=== PATIENT | female | born 1975 | race Caucasian/White ===

== ENCOUNTER 2018-09-03 15:07 | Inpatient (IN) | payer OTHER ==
[2018-09-03 17:44] VITALS: BMI 27.6
--- NOTE | 2018-09-03 17:59 | HP ---
COWS - Scale Resting Pulse: 1= [place] 81-100 Sweatin= Chills/Flushing Restless Observation: 1= Difficult to Sit Still Pupil Size: 1= Pupils >than Normal Bone or Joint Aches: 2= Severe Diffuse Aches Runny Nose/ Eye Tearin= Runny Nose/Eyes GI Upset > 30mins: 1= Stomach Cramp Tremor Observation: 2= Slight Tremor Visible Yawning Observation: 2= >3x During Session Anxiety or Irritability: 2=Irritable/Anxious Goose Flesh Skin: 0=Smooth Skin COWS Score: 15 CIWA Score Nausea/Vomitin Muscle Tremors: 2 Anxiety: 2 Agitation: 2 Paroxysmal Sweats: 1-Minimal Palms Moist Orientation: 0-Oriented Tacttile Disturbances: 1-Very Mild Itch/Numbness Auditory Disturbances: 1-Very Mild Visual Disturbances: 0-None Headache: 2-Mild CIWA-Ar Total Score: 13 - Admission Criteria [facility]AS Guidelines: Admission for Medically Managed Detox: Requires at least one of the followin. CIWA greater than 12 2. Seizures within the past 24 hours 3. Delirium tremens within the past 24 hours 4. Hallucinations within the past 24 hours 5. Acute intervention needed for co occurring medical disorder 6. Acute intervention needed for co occurring psychiatric disorder 7. Severe withdrawal that cannot be handled at a lower level of care (continued vomiting, continued diarrhea, abnormal vital signs) requiring intravenous medication and/or fluids 8. Patient presents the following: CIWA greater than 12 Admission Criteria Met: Admission criteria met Admission ROS [facility] Chief Complaint: i am here for detox from heroin ,alcohol and cocaine Allergies/Adverse Reactions: Allergies Allergy/AdvReac Type Severity Reaction Status Date / Time No Known Allergies Allergy Verified 09/03/18 17:49 History of Present Illness: this 42 years old female with heroin.alcohol and cocaine dependence,seeking detox,withdrawal symptom,never been in detox before nicotine dependence weight loss need help to come in for detox - Ebola screening Have you traveled outside of the country in the last 21 days: No (N) Have you had contact with anyone from an Ebola affected area: No Have you been sick,other than usual withdrawal symptoms: No Do you have a fever: No - Review of Systems Constitutional: Chills, Loss of Appetite, Malaise, Night Sweats, Changes in sleep, Weakness EENT: reports: No Symptoms Reported Respiratory: reports: No Symptoms reported Cardiac: reports: No Symptoms Reported GI: reports: Constipated, Nausea, Abdominal cramping : reports: No Symptoms Reported Musculoskeletal: reports: Joint Pain, Muscle Pain, Neck Pain Integumentary: reports: Dryness Neuro: reports: Headache, Tremors Endocrine: reports: No Symptoms Reported Hematology: reports: No Symptoms Reported Psychiatric: reports: Judgement Intact, Mood/Affect Appropiate, Orientated x3 Other Systems: Reviewed and Negative Patient History - Patient Medical History Hx Anemia: No Hx Asthma: No Hx Chronic Obstructive Pulmonary Disease (COPD): No Hx Cancer: No Hx Cardiac Disorders: No Hx Congestive Heart Failure: No Hx Hypertension: No Hx Hypercholesterolemia: No Hx Pacemaker: No HX Cerebrovascular Accident: No Hx Seizures: No Hx Dementia: No Hx Diabetes: No Hx Gastrointestinal Disorders: No Hx Liver Disease: No Hx Genitourinary Disorders: No Hx Sexually Transmitted Disorders: No Hx Renal Disease (ESRD): No Hx Thyroid Disease: No Hx Human Immunodeficiency Virus (HIV): No (last 2007) Hx Hepatitis C: No Hx Depression: No Hx Suicide Attempt: No Hx Bipolar Disorder: No Hx Schizophrenia: No Other Medical History: no suicidal,no homicidal - Patient Surgical History Past Surgical History: No - PPD History Previous Implant?: Yes Documented Results: Negative w/o proof Implanted On Prior R Admission?: No PPD to be Administered?: Yes - Reproductive History Patient is a Female of Child Bearing Age (11 -55 yrs old): Yes Last Menstrual Period: 09/02/18 Patient : No - Smoking Cessation Smoking history: Current every day smoker Have you smoked in the past 12 months: Yes Aproximately how many cigarettes per day: 20 Hx Chewing Tobacco Use: No Initiated information on smoking cessation: Yes 'Breaking Loose' booklet given: 09/03/18 - Substance & Tx. History Hx Alcohol Use: Yes Hx Substance Use: Yes Substance Use Type: Alcohol, Heroin Hx Substance Use Treatment: No - Substances Abused Alcohol Route: Oral Frequency: Daily Amount used: 4/6 PACKS BEER Age of first use: 29 Date of Last Use: 09/03/18 Heroin Route: SNIFF Frequency: Daily Amount used: 2 BUNDLES Age of first use: 42 Date of Last Use: 09/03/18 Family Disease History - Family Disease History Family History: Denies Admission Physical Exam BHS - Vital Signs Vital Signs: Vital Signs - 24 hr 09/03/18 17:22 Temperature 98.6 F Pulse Rate 84 Respiratory 18 Rate Blood Pressure 93/60 - Physical General Appearance: Yes: Moderate Distress, Tremorous, Irritable, Sweating, Anxious HEENTM: Yes: Normal ENT Inspection, AKASH, Pharynx Normal Respiratory: Yes: Within Normal Limits, Lungs Clear, Normal Breath Sounds Neck: Yes: Within Normal Limits, Supple, Trachea in good position Breast: Yes: Breast Exam Deferred Cardiology: Yes: Within Normal Limits, Regular Rhythm, Regular Rate, S1, S2 Abdominal: Yes: Within Normal Limits, Normal Bowel Sounds, Non Tender, Flat, Soft Genitourinary: Yes: Within Normal Limits Back: Yes: Muscle Spasm Musculoskeletal: Yes: Back pain, Muscle Pain 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 intact, Fully Oriented, Alert, Motor Strength 5/5 Integumentary: Yes: Dry, Petechiae - Diagnostic (1) Opioid dependence with withdrawal Current Visit: Yes Status: Acute (2) Alcohol dependence with uncomplicated withdrawal Current Visit: Yes Status: Acute (3) Cocaine abuse Current Visit: Yes Status: Acute (4) Weight loss Current Visit: Yes Status: Acute (5) Dehydration Current Visit: Yes Status: Acute (6) Nicotine dependence Current Visit: Yes Status: Acute Cleared for Admission [facility] - Detox or Rehab [facility] Level of Care: Medically Managed Detox Regimen/Protocol: Methadone/Librium [facility] Breath Alcohol Content Breath Alcohol Content: 0 Urine Pregancy Test - Result Urine Test Results: Negative- NO Line Present Urine Drug Screen - Results Drug Screen Negative: No Urine Drug Screen Results: RICKY-Cocaine, OPI-Opiates Inpatient Rehab Admission - Rehab Decision to Admit Inpatient rehab admission?: No
[2018-09-03] MEDS ORDERED: MAGNESIUM CITRATE 300 ML BOTTLE PO PRN (19:22)
[2018-09-03] MEDS ORDERED: MAGNESIUM HYDROX 2400MG/30ML ORAL SUSPENSION 30 ML CUP PO PRN (19:22)
[2018-09-03] MEDS ORDERED: MENTHOL/PHENOL 1 EACH UD MM PRN (19:22)
[2018-09-03] MEDS ORDERED: NICOTINE POLACRILEX 2 MG GUM BC PRN (19:22)
[2018-09-03] MEDS ORDERED: P-EPHED 60MG/TRIPROLIDI 2.5MG TABLET PO PRN (19:22)
[2018-09-03] MEDS ORDERED: LOPERAMIDE HCL 2 MG CAPSULE PO PRN (19:22)
[2018-09-03] MEDS ORDERED: MAG HYDROX/AL HYDROX/SIMETH 30 ML UNIT-DOSE CUP PO PRN (19:22)
[2018-09-03] MEDS ORDERED: hydrOXYzine PAMOATE 25 MG CAPSULE (FP) PO PRN (19:22)
[2018-09-03] MEDS ORDERED: METHADONE HCL 10 MG TABLET (FOR DETOX USE ONLY) PO ONE ×2 (19:45→23:00)
[2018-09-03] MEDS: NICOTINE 21 MG/24 HOURS TOPICAL PATCH TD SCH (21:31)
[2018-09-03] MEDS ORDERED: MELATONIN 5 MG TABLETS PO PRN (22:00)
[2018-09-03] MEDS: chlordiazePOXIDE HCL 25 MG CAPSULE PO SCH (22:08)
[2018-09-03] MEDS: cloNIDine HCL 0.1 MG TABLET PO SCH (22:08)
[2018-09-03] MEDS: THIAMINE HCL 100 MG TABLET (FP) PO SCH (22:08)
[2018-09-04] MEDS: chlordiazePOXIDE HCL 25 MG CAPSULE PO SCH ×4 (06:00→23:06)
[2018-09-04] MEDS: ACETAMINOPHEN 325 MG TABLET (FP) PO PRN ×4 (06:11→23:08)
[2018-09-04] MEDS: guaiFENesin/D-METHORPHAN HB 10 ML UNIT-DOSE CUPS PO PRN (06:12)
--- NOTE | 2018-09-04 07:38 | PN ---
S Progress Note Note: Patient had a fever of T 102.1 and complained of cough. She is status post a fall. Vital Signs Temperature 102.1 F H 09/04/18 06:30 Pulse Rate 100 H 09/04/18 06:30 Respiratory Rate 20 09/04/18 06:30 Blood Pressure 121/79 09/04/18 06:30 O2 Sat by Pulse Oximetry (%) Action: CBC and BMP done Guaifenesin DM 10 ml oral Q6H prn [id number] tablet Q4H as needed
[2018-09-04] MEDS ORDERED: METHADONE HCL 10 MG TABLET (FOR DETOX USE ONLY) PO SCH (10:00)
[2018-09-04] MEDS: PRENATAL VITAMINS W/ FOLIC ACID TABLET (FP) PO SCH (10:44)
[2018-09-04] MEDS: NICOTINE 21 MG/24 HOURS TOPICAL PATCH TD SCH (10:45)
[2018-09-04] MEDS: cloNIDine HCL 0.1 MG TABLET PO SCH ×2 (10:45→23:06)
[2018-09-04 10:49] LABS: HEMATOCRIT 32.9 % (32.4-45.2); HEMOGLOBIN 11.2 GM/dL (10.7-15.3); MCH 32.7 pg (25.7-33.7); MCHC 34.1 g/dl (32.0-36.0); MEAN CELL VOLUME 95.8 fl (80-96); MEAN PLT VOLUME 8.8 fl (7.5-11.1); PLATELET COUNT 254 K/MM3 (134-434); RBC 3.43 M/mm3 (3.60-5.2); RDW 16.4 % (11.6-15.6); WHITE BLOOD COUNT 5.3 K/mm3 (4.0-10.0)
[2018-09-04 10:55] LABS: ALBUMIN 3.1 g/dl (3.4-5.0); ALK PHOS 54 U/L (45-117); ANION GAP 6 MMOL/L (8-16); BILIRUBIN,TOTAL 0.2 mg/dL (0.2-1); BLOOD UREA NITROGEN 13 mg/dL (7-18); CALCIUM 8.1 mg/dL (8.5-10.1); CHLORIDE 107 mmol/L (98-107); CO2 26 mmol/L (21-32); GLUCOSE,RANDOM 99 mg/dL (74-106); POTASSIUM 4.4 mmol/L (3.5-5.1); SGOT/AST 12 U/L (15-37); SGPT/ALT 14 U/L (13-61); SODIUM 139 mmol/L (136-145); TOT PROT 6.3 g/dl (6.4-8.2)
--- NOTE | 2018-09-04 11:43 | PN ---
[facility] CIWA - CIWA Score Nausea/Vomitin-Mild Nausea/No Vomiting Muscle Tremors: 3 Anxiety: 1-Mildly Anxious Agitation: 2 Paroxysmal Sweats: 1-Minimal Palms Moist Orientation: 1-Uncertain about Date Tacttile Disturbances: 0-None Auditory Disturbances: 0-None Visual Disturbances: 0-None Headache: 1-Very Mild CIWA-Ar Total Score: 10 [facility] COWS - Scale Resting Pulse: 1= [place] 81-100 Sweatin= Chills/Flushing Restless Observation: 0= Sits Still Pupil Size: 0= Normal to Room Light Bone or Joint Aches: 2= Severe Diffuse Aches Runny Nose/ Eye Tearin= Nasal Congestion GI Upset > 30mins: 2= Nausea/Diarrhea Tremor Observation of Outstretched Hands: 2= Slight Tremor Visible Yawning Observation: 1= 1-2x During Session Anxiety or Irritability: 1=Feels Anxious/Irritable Goose Flesh Skin: 0=Smooth Skin COWS Score: 11 [facility] Progress Note (SOAP) Subjective: tremor body aches sweating muscle cramping coughing frequent urination Objective: 09/04/18 12:31 Vital Signs Temperature 100.5 F H 09/04/18 09:36 Pulse Rate 95 H 09/04/18 09:36 Respiratory Rate 16 09/04/18 09:36 Blood Pressure 98/62 09/04/18 09:36 O2 Sat by Pulse Oximetry (%) Laboratory Last Values WBC 5.3 K/mm3 (4.0-10.0) 09/04/18 07:35 RBC 3.43 M/mm3 (3.60-5.2) L 09/04/18 07:35 Hgb 11.2 GM/dL (10.7-15.3) 09/04/18 07:35 Hct 32.9 % (32.4-45.2) 09/04/18 07:35 MCV 95.8 fl (80-96) 09/04/18 07:35 MCH 32.7 pg (25.7-33.7) 09/04/18 07:35 MCHC 34.1 g/dl (32.0-36.0) 09/04/18 07:35 RDW 16.4 % (11.6-15.6) H 09/04/18 07:35 Plt Count 254 K/MM3 (134-434) 09/04/18 07:35 MPV 8.8 fl (7.5-11.1) 09/04/18 07:35 Sodium 139 mmol/L (136-145) 09/04/18 07:35 Potassium 4.4 mmol/L (3.5-5.1) 09/04/18 07:35 Chloride 107 mmol/L (98-107) 09/04/18 07:35 Carbon Dioxide 26 mmol/L (21-32) 09/04/18 07:35 Anion Gap 6 MMOL/L (8-16) L 09/04/18 07:35 BUN 13 mg/dL (7-18) 09/04/18 07:35 Creatinine 1.0 mg/dL (0.55-1.3) 09/04/18 07:35 Creat Clearance w eGFR > 60 (>60) 09/04/18 07:35 Random Glucose 99 mg/dL (74-106) 09/04/18 07:35 Calcium 8.1 mg/dL (8.5-10.1) L 09/04/18 07:35 Total Bilirubin 0.2 mg/dL (0.2-1) 09/04/18 07:35 AST 12 U/L (15-37) L 09/04/18 07:35 ALT 14 U/L (13-61) 09/04/18 07:35 Alkaline Phosphatase 54 U/L (45-117) 09/04/18 07:35 Total Protein 6.3 g/dl (6.4-8.2) L 09/04/18 07:35 Albumin 3.1 g/dl (3.4-5.0) L 09/04/18 07:35 RPR Titer Nonreactive (NONREACTIVE) 09/04/18 07:35 HIV 1&2 Antibody Screen Negative 09/04/18 07:35 HIV P24 Antigen Negative 09/04/18 07:35 lab noted low Ca++ 09/04/18 12:31 Assessment: 09/04/18 12:32 withdrawal sx rule out pneumonia uti Plan: continue detox chest x ray bactrim ds bid
[2018-09-04] MEDS: SULFAMETHOXAZOLE/TRIMETHOPRIM 800MG/160MG D.S. TABLET PO SCH ×2 (14:25→22:55)
[2018-09-04] MEDS: CALCIUM 250MG/VIT-D 125 UNITS 1 COMBO TABLET PO SCH ×2 (14:25→22:55)
[2018-09-04] MEDS: IBUPROFEN 400 MG TABLET (FP) PO PRN (17:20)
[2018-09-04] MEDS: CYCLOBENZAPRINE HCL 10 MG TABLET (FP) PO PRN (19:16)
[2018-09-04] MEDS: chlordiazePOXIDE HCL 25 MG CAPSULE PO PRN (19:18)
[2018-09-04] MEDS: THIAMINE HCL 100 MG TABLET (FP) PO SCH (22:06)
[2018-09-05] MEDS: IBUPROFEN 400 MG TABLET (FP) PO PRN ×2 (01:12→16:49)
[2018-09-05] MEDS: CYCLOBENZAPRINE HCL 10 MG TABLET (FP) PO PRN (03:58)
[2018-09-05] MEDS: ACETAMINOPHEN 325 MG TABLET (FP) PO PRN ×2 (03:58→15:17)
[2018-09-05] MEDS: chlordiazePOXIDE HCL 25 MG CAPSULE PO SCH ×3 (04:00→16:49)
[2018-09-05] MEDS: guaiFENesin/D-METHORPHAN HB 10 ML UNIT-DOSE CUPS PO PRN (04:01)
[2018-09-05] MEDS: chlordiazePOXIDE HCL 25 MG CAPSULE PO PRN ×2 (08:48→20:09)
[2018-09-05] MEDS ORDERED: METHADONE HCL 5 MG TABLET (FOR DETOX USE ONLY) PO SCH (10:00)
[2018-09-05] MEDS: PRENATAL VITAMINS W/ FOLIC ACID TABLET (FP) PO SCH (10:33)
[2018-09-05] MEDS: cloNIDine HCL 0.1 MG TABLET PO SCH ×2 (10:34→22:27)
[2018-09-05] MEDS: NICOTINE 21 MG/24 HOURS TOPICAL PATCH TD SCH (10:35)
[2018-09-05] MEDS: CALCIUM 250MG/VIT-D 125 UNITS 1 COMBO TABLET PO SCH ×2 (10:35→22:28)
[2018-09-05] MEDS: SULFAMETHOXAZOLE/TRIMETHOPRIM 800MG/160MG D.S. TABLET PO SCH ×2 (10:36→22:27)
--- NOTE | 2018-09-05 11:28 | PN ---
[facility] CIWA - CIWA Score Nausea/Vomitin-No Nausea/No Vomiting Muscle Tremors: 2 Anxiety: 3 Agitation: 2 Paroxysmal Sweats: 1-Minimal Palms Moist Orientation: 0-Oriented Tacttile Disturbances: 0-None Auditory Disturbances: 0-None Visual Disturbances: 0-None Headache: 0-None Present CIWA-Ar Total Score: 8 [facility] COWS - Scale Resting Pulse: 2= [place] 101-120 Sweatin= Chills/Flushing Restless Observation: 0= Sits Still Pupil Size: 0= Normal to Room Light Bone or Joint Aches: 1= Mild Discomfort Runny Nose/ Eye Tearin= Nasal Congestion GI Upset > 30mins: 0= None Tremor Observation of Outstretched Hands: 1= Tremor [place], Not Seen Yawning Observation: 1= 1-2x During Session Anxiety or Irritability: 1=Feels Anxious/Irritable Goose Flesh Skin: 0=Smooth Skin COWS Score: 8 [facility] Progress Note (SOAP) Subjective: sweating tolerates food and fluid well frequent low grade fever treated with tylenal and oral fluid continue bactrim ds Objective: 09/05/18 11:29 Vital Signs Temperature 96.6 F L 09/05/18 09:11 Pulse Rate 85 09/05/18 09:11 Respiratory Rate 16 09/05/18 09:11 Blood Pressure 95/59 L 09/05/18 09:11 O2 Sat by Pulse Oximetry (%) Laboratory Last Values WBC 5.3 K/mm3 (4.0-10.0) 09/04/18 07:35 RBC 3.43 M/mm3 (3.60-5.2) L 09/04/18 07:35 Hgb 11.2 GM/dL (10.7-15.3) 09/04/18 07:35 Hct 32.9 % (32.4-45.2) 09/04/18 07:35 MCV 95.8 fl (80-96) 09/04/18 07:35 MCH 32.7 pg (25.7-33.7) 09/04/18 07:35 MCHC 34.1 g/dl (32.0-36.0) 09/04/18 07:35 RDW 16.4 % (11.6-15.6) H 09/04/18 07:35 Plt Count 254 K/MM3 (134-434) 09/04/18 07:35 MPV 8.8 fl (7.5-11.1) 09/04/18 07:35 Sodium 139 mmol/L (136-145) 09/04/18 07:35 Potassium 4.4 mmol/L (3.5-5.1) 09/04/18 07:35 Chloride 107 mmol/L (98-107) 09/04/18 07:35 Carbon Dioxide 26 mmol/L (21-32) 09/04/18 07:35 Anion Gap 6 MMOL/L (8-16) L 09/04/18 07:35 BUN 13 mg/dL (7-18) 09/04/18 07:35 Creatinine 1.0 mg/dL (0.55-1.3) 09/04/18 07:35 Creat Clearance w eGFR > 60 (>60) 09/04/18 07:35 Random Glucose 99 mg/dL (74-106) 09/04/18 07:35 Calcium 8.1 mg/dL (8.5-10.1) L 09/04/18 07:35 Total Bilirubin 0.2 mg/dL (0.2-1) 09/04/18 07:35 AST 12 U/L (15-37) L 09/04/18 07:35 ALT 14 U/L (13-61) 09/04/18 07:35 Alkaline Phosphatase 54 U/L (45-117) 09/04/18 07:35 Total Protein 6.3 g/dl (6.4-8.2) L 09/04/18 07:35 Albumin 3.1 g/dl (3.4-5.0) L 09/04/18 07:35 RPR Titer Nonreactive (NONREACTIVE) 09/04/18 07:35 HIV 1&2 Antibody Screen Negative 09/04/18 07:35 HIV P24 Antigen Negative 09/04/18 07:35 lab noted Assessment: 09/05/18 11:30 opiate and benzo withdrawal sx Plan: continue detox
--- NOTE | 2018-09-05 13:59 | EKG ---
Test Reason : Blood Pressure : / mmHG Vent. Rate : 087 BPM Atrial Rate : 087 BPM P-R Int : 118 ms QRS Dur : 074 ms QT Int : 344 ms P-R-T Axes : 056 067 037 degrees QTc Int : 413 ms NORMAL SINUS RHYTHM NORMAL ECG NO PREVIOUS ECGS AVAILABLE Confirmed by JAYDA FLORES MD ([id number]) on 09/05/2018 1:59:16 PM Referred By: Confirmed By:JAYDA FLORES MD
[2018-09-05 18:47] VITALS: TEMP 101.3
--- NOTE | 2018-09-05 19:11 | PN ---
[facility] Progress Note Note: Patient evaluated after consistent elevated temperature. Patient was admitted 09/03/17 for alcohol and opioid detox. Patient complaints of generalize body aches, weakness, light sensitivity and diaphoresis, reports she has had a fever for three days. Patient denies CP, SOB, cough, any vaginal discharge or urinary symptoms. Patient AO x3 in no respiratory distress + diaphoresis EENT WNL Lungs Clear throughout s1 s2 , no jvd + back pain Skin intact, no edema Vital Signs (72 hours) 09/03/18 09/03/18 09/04/18 17:22 22:00 00:30 Temperature 98.6 F 99.9 F H Pulse Rate 84 89 Respiratory 18 16 18 Rate Blood Pressure 93/60 89/59 L 09/04/18 09/04/18 09/04/18 03:30 06:30 09:36 Temperature 102.1 F H 100.5 F H Pulse Rate 100 H 95 H Respiratory 18 20 16 Rate Blood Pressure 121/79 98/62 09/04/18 09/04/18 09/04/18 14:42 18:03 23:46 Temperature 100.1 F H 100.4 F H 101 F H Pulse Rate 82 94 H Respiratory 1 L 16 Rate Blood Pressure 95/57 L 114/78 09/05/18 09/05/18 09/05/18 00:30 01:00 06:00 Temperature 102.5 F H 100.9 F H Pulse Rate 107 H Respiratory 18 20 Rate Blood Pressure 102/67 09/05/18 09/05/18 09/05/18 06:30 09:11 12:45 Temperature 99.3 F 96.6 F L 101.3 F H Pulse Rate 85 121 H Respiratory 18 16 18 Rate Blood Pressure 95/59 L 115/73 09/05/18 09/05/18 17:31 18:46 Temperature 101.5 F H 101.3 F H Pulse Rate 94 H 101 H Respiratory 16 16 Rate Blood Pressure 73/48 L 100/62 Laboratory Last Values WBC 5.3 K/mm3 (4.0-10.0) 09/04/18 07:35 RBC 3.43 M/mm3 (3.60-5.2) L 09/04/18 07:35 Hgb 11.2 GM/dL (10.7-15.3) 09/04/18 07:35 Hct 32.9 % (32.4-45.2) 09/04/18 07:35 MCV 95.8 fl (80-96) 09/04/18 07:35 MCH 32.7 pg (25.7-33.7) 09/04/18 07:35 MCHC 34.1 g/dl (32.0-36.0) 09/04/18 07:35 RDW 16.4 % (11.6-15.6) H 09/04/18 07:35 Plt Count 254 K/MM3 (134-434) 09/04/18 07:35 MPV 8.8 fl (7.5-11.1) 09/04/18 07:35 Sodium 139 mmol/L (136-145) 09/04/18 07:35 Potassium 4.4 mmol/L (3.5-5.1) 09/04/18 07:35 Chloride 107 mmol/L (98-107) 09/04/18 07:35 Carbon Dioxide 26 mmol/L (21-32) 09/04/18 07:35 Anion Gap 6 MMOL/L (8-16) L 09/04/18 07:35 BUN 13 mg/dL (7-18) 09/04/18 07:35 Creatinine 1.0 mg/dL (0.55-1.3) 09/04/18 07:35 Creat Clearance w eGFR > 60 (>60) 09/04/18 07:35 Random Glucose 99 mg/dL (74-106) 09/04/18 07:35 Calcium 8.1 mg/dL (8.5-10.1) L 09/04/18 07:35 Total Bilirubin 0.2 mg/dL (0.2-1) 09/04/18 07:35 AST 12 U/L (15-37) L 09/04/18 07:35 ALT 14 U/L (13-61) 09/04/18 07:35 Alkaline Phosphatase 54 U/L (45-117) 09/04/18 07:35 Total Protein 6.3 g/dl (6.4-8.2) L 09/04/18 07:35 Albumin 3.1 g/dl (3.4-5.0) L 09/04/18 07:35 RPR Titer Nonreactive (NONREACTIVE) 09/04/18 07:35 HIV 1&2 Antibody Screen Negative 09/04/18 07:35 HIV P24 Antigen Negative 09/04/18 07:35 Patient sent to [facility] for further evaluation, endorsed to Dr. Hiren Randall, patient transported via [facility].
[2018-09-05 21:42] VITALS: BP 97/62; PULSE 106
--- NOTE | 2018-09-05 22:16 | PN ---
S Progress Note Note: Vital Signs Temperature 101.3 F H 09/05/18 20:00 Pulse Rate 106 H 09/05/18 20:00 Respiratory Rate 18 09/05/18 20:00 Blood Pressure 97/62 09/05/18 20:00 O2 Sat by Pulse Oximetry (%) Patient medically cleared dx with strep pharyngitis d/c with Rapid strep test positive -- providing 875 mg PO Augmentin. Influenza A positive -- will provide first dose of Tamiflu
[2018-09-05] MEDS: THIAMINE HCL 100 MG TABLET (FP) PO SCH (22:28)
--- NOTE | 2018-09-05 22:58 | PN ---
[facility] Progress Note Note: 09/05/18 22:10 pt has a POSITIVE STREP SWAB and a POSITIVE INFLUENZA swab and was started on antibiotics and tamiflu discharge back to [facility] 09/05/18 22:[address] MORALES ABOUT ABOVE. CLIENT WILL REQUIRES DROPLET ISOLATION. CASE D/W NURSING SUPV. JEWELL Greenwood CLIENT WILL REQUIRE PVT ROOM. ALL ROOMS ARE DUAL OCCUPANCY. REQUEST TO ADMIT CLIENT TO [facility]ULT [facility].
[2018-09-05] MEDS ORDERED: chlordiazePOXIDE 5 MG CAPSULE PO SCH (23:00)
[2018-09-06] MEDS ORDERED: chlordiazePOXIDE HCL 10 MG CAPSULE PO SCH (23:00)
[2018-09-07] MEDS ORDERED: METHADONE HCL 10 MG TABLET (FOR DETOX USE ONLY) PO SCH (10:00)
[2018-09-08] MEDS ORDERED: METHADONE HCL 5 MG TABLET (FOR DETOX USE ONLY) PO SCH (06:00)
== END 2018-09-05 11:59 | disposition short-term general hospital (02) | DRG 773 ==
LOC: YASAS 15:07 → Y3N 18:32
PROVIDERS: ADMIT Surgery; ATTEND Surgery
PROC: HZ2ZZZZ Detoxification Services for Substance Abuse Treatment (ICD-10-PCS; principal; 2018-09-03)
DX: F11.23 Opioid dependence with withdrawal (principal); F13.230 Sedative, hypnotic or anxiolytic dependence with withdrawal, uncomplicated; F14.10 Cocaine abuse, uncomplicated; F17.210 Nicotine dependence, cigarettes, uncomplicated; N39.0 Urinary tract infection, site not specified; J02.0 Streptococcal pharyngitis; J10.1 Influenza due to other identified influenza virus with other respiratory manifestations; E86.0 Dehydration
CPT/HCPCS: 36415; 71046-TC-FY; 80053; 85027; 86593; 87389; 93005; 93010

== ENCOUNTER 2018-09-05 20:30 | Inpatient (IN) | payer OTHER ==
[2018-09-05 20:51] VITALS: BMI 27.6
--- NOTE | 2018-09-05 21:00 | PDOC ---
History of Present Illness - General Chief Complaint: Respiratory Stated Complaint: FEVER/PAIN Time Seen by Provider: 09/05/18 20:47 History Source: Patient Exam Limitations: Other (poor historian, unwilling to answer some questions, uncooperative) - History of Present Illness Initial Comments: Pt is a 42 yo F, with PMH of polysubstance abuse (heroin, nicotine, alcohol, cocaine), who is presenting via EMS from [facility] detox with complaints of fever and generalized body aches x3 days. She had 1 episode of NBNB vomiting yesterday. Pt went to detox at [facility] 2 days ago, but denies ever using IVDU. Pt has been taking ibuprofen and motrin for fever, which has improved symptoms. Pt denies any headache, syncope, chest pain, SOB, abdominal pain, urinary symptoms, or diarrhea/constipation. Pt uncooperative and will only provide limited ROS. Social: see above Pt denies any recent travel or known sick contacts. Surgical: no relevant history. Family: no relevant history. 09/05/18 22:24 Past History - Travel Traveled outside of the country in the last 30 days: No Close contact w/someone who was outside of country & ill: No - Past Medical History Allergies/Adverse Reactions: Allergies Allergy/AdvReac Type Severity Reaction Status Date / Time No Known Allergies Allergy Verified 09/05/18 20:51 Home Medications: Ambulatory Orders Naloxone HCl [Narcan] 4 mg NS ASDIR PRN 09/04/18 Amoxicillin/Potassium Clav [Augmentin 875-125 Tablet] 1 each PO BID 7 Days #14 tablet 09/05/18 Oseltamivir Phosphate [Tamiflu] 75 mg PO BID 5 Days #10 capsule 09/05/18 Anemia: No Asthma: No Cancer: No Cardiac Disorders: No CVA: No COPD: No CHF: No Dementia: No Diabetes: No GI Disorders: No Disorders: No HTN: No Hypercholesterolemia: No Liver Disease: No Seizures: No Thyroid Disease: No - Suicide/Smoking/Psychosocial Hx Smoking History: Current some day smoker Have you smoked in the past 12 months: Yes Number of Cigarettes Smoked Daily: 20 Information on smoking cessation initiated: No 'Breaking Loose' booklet given: 09/03/18 Hx Alcohol Use: Yes Drug/Substance Use Hx: Yes (Heroin, Cocaine) Substance Use Type: Alcohol, Heroin Hx Substance Use Treatment: No Review of Systems - Review of Systems Able to Perform ROS?: No (uncooperative, see HPI) Is the patient limited Libyan proficient: No *Physical Exam - Vital Signs Last Vital Signs Temp Pulse Resp BP Pulse Ox 101.3 F H 103 H 20 100/62 98 09/05/18 20:30 09/05/18 20:30 09/05/18 20:30 09/05/18 20:30 09/05/18 20:30 - Physical Exam Comments: Febrile 101.3. Pt in NAD, normal body habitus. PE showed pt alert and oriented. ore dryer generally intact, muscular strength and sensation intact. Eyes PERRLA, EOMI. No LAD b/l. Hearing intact. Nasal congestion with boggy turbinates. Pt would not allow examination past the throat swab to examine if exudates were present. Clear heart sounds, S1/S2, no JVD, b/l pedal edema, or heart murmur. Clear lung sounds, no respiratory distress, wheezes, crackles, or accessory muscle use. No abdominal or CVA tenderness to palpation, no rebound, no guarding. Abdomen soft, non-distended, and with normoactive bowel sounds. Skin without jaundice or rash. No active needle track heart. 09/05/18 22:24 Moderate Sedation - Procedure Monitoring Vital Signs: Procedure Monitoring Vital Signs Temperature 101.3 F H 09/05/18 20:30 Pulse Rate 103 H 09/05/18 20:30 Respiratory Rate 20 09/05/18 20:30 Blood Pressure 100/62 09/05/18 20:30 O2 Sat by Pulse Oximetry (%) 98 09/05/18 20:30 Medical Decision Making - Medical Decision Making Pt was seen at bedside, also will be seen by attending Dr. Forbes. Pt presenting via EMS from [facility] detox with complaints of fever and generalized body aches x3 days. She had 1 episode of NBNB vomiting yesterday. Pt went to detox at [facility] 2 days ago, but denies ever using IVDU. Pt has been taking ibuprofen and motrin for fever, which has improved symptoms. Pt denies any headache, syncope, chest pain, SOB, abdominal pain, urinary symptoms , or diarrhea/constipation. Pt uncooperative and will only provide limited ROS. Febrile 101.3. Pt in NAD, normal body habitus. PE showed pt alert and oriented. ore dryer generally intact, muscular strength and sensation intact. Eyes PERRLA, EOMI. No LAD b/l. Hearing intact. Nasal congestion with boggy turbinates. Pt would not allow examination past the throat swab to examine if exudates were present. Clear heart sounds, S1/S2, no JVD, b/l pedal edema, or heart murmur. Clear lung sounds, no respiratory distress, wheezes, crackles, or accessory muscle use. No abdominal or CVA tenderness to palpation, no rebound, no guarding. Abdomen soft, non-distended, and with normoactive bowel sounds. Skin without jaundice or rash. No active needle track heart. Considering viral URI vs influenza vs strep pharyngitis. Pt has been tested negative for HIV and has never used IV drugs. Pt has no meningeal signs on exam. Ordered work-up including rapid influenza and rapid strep test. Lab tests and chest x-ray done at [facility] yesterday and were all WNL. Provided 650 mg PO tylenol for improvement of fever. Will continue to reassess pt and monitor for symptomatic improvement. 09/05/18 21:53 Rapid strep test positive -- providing 875 mg PO Augmentin. Influenza A positive -- will provide first dose of Tamiflu Sent Augmentin and Tamiflu to [facility] pharmacy. 09/05/18 21:57 Pt was found wandering the halls, trying to lie down in other patients beds. Pt asked to go back to her room, when she complained about myself and nursing staff and asked to "see the pts rights of the hospital". Dr. Forbes spoke with pt and will communicate with her before discharge. Calling [facility] to inform pt is ready for discharge and we will arrange transportation as pt is admitted. 09/05/18 21:59 *DC/Admit/Observation/Transfer Diagnosis at time of Disposition: Strep pharyngitis, Cocaine abuse, Alcohol dependence with uncomplicated withdrawal - Discharge Dispostion Disposition: [facility]WAY FACILITY Condition at time of disposition: Good Decision to Admit order: No - Prescriptions Prescriptions: Amoxicillin/Potassium Clav [Augmentin 875-125 Tablet] 1 each PO BID 7 Days #14 tablet Oseltamivir Phosphate [Tamiflu] 75 mg PO BID 5 Days #10 capsule - Referrals Referrals: [facility] [place]Provider Group] - Patient Instructions Printed Discharge Instructions: DI for Strep Throat, DI for Influenza -- Adult Additional Instructions: You were seen in the ER today for fever. The results of your labs today showed Flu A and strep throat. We have sent Tamiflu and an antibiotic (Augmentin) to your pharmacy. Please take these as prescribed. Please follow-up with your primary care doctor within 1-2 days to discuss your visit and make sure your symptoms have improved. Please return to the ER if you have any worsening pain, development of fevers or chills, loss of consciousness , inability to tolerate food or fluids, or any other concerns. - Post Discharge Activity
[2018-09-05] MEDS ORDERED: ACETAMINOPHEN 325 MG TABLET (FP) PO ONE (21:05)
--- NOTE | 2018-09-05 21:16 | PDOC ---
Attending Attestation - HPI HPI: 09/05/18 21:33 The patient is a 42 year old female, with a significant past medical history of polysubstance abuse (heroin, cocaine, and alcohol), who presents to the emergency department via EMS from [facility] with, fever (Tmax 101.4F), nasal congestion, and diffuse body aches. She denies recent nausea, vomit, diarrhea or constipation. She denies recent dysuria, frequency, urgency or hematuria. She denies recent chest pain or shortness of breath. Allergies: NKDA Social history: Smoker. Cocaine, alcohol, and heroin abuse. - Physicial Exam PE: 09/05/18 21:33 GENERAL: Well-appearing, well-nourished. No apparent distress. HEENT: +Nasal congestion. Normocephalic, atraumatic. PERRL, EOM intact. CARDIOVASCULAR: +Tachycardic. Normal S1, S2. Regular rhythm. PULMONARY: Clear to auscultation bilaterally. ABDOMEN: Soft, non-distended, non-tender. EXTREMITIES: Normal ROM in all four extremities. No gross deformities. SKIN: Warm, dry. No rash NEUROLOGICAL: No focal neurological deficits. <Magdalene Rice - Last Filed: 09/05/18 21:32> - Resident Resident Name: Alida Rodriguez - ED Attending Attestation I have performed the following: I have examined & evaluated the patient, The case was reviewed & discussed with the resident, I agree w/resident's findings & plan, Exceptions are as noted - Medical Decision Making 09/05/18 22:10 pt has a POSITIVE STREP SWAB and a POSITIVE INFLUENZA swab and was started on antibiotics and tamiflu discharge back to [facility] 09/05/18 22:25 09/05/18 23:03 [facility] does not accept patient's with droplet precautions/isolation because they do not have isolation rooms and so this pt will need to be admitted here and a detox consult will be made w [facility]'s detpx physician 09/05/18 23:35 <Sherrie Forbes - Last Filed: 09/05/18 23:35> Attestations - Attestations 09/05/18 21:34 Documentation prepared by Magdalene Rice, acting as hospital medical assistant for Sherrie Forbes MD. <Magdalene Rice - Last Filed: 09/05/18 21:32>
[2018-09-05] MEDS ORDERED: AMOX TR/POT CLAV 875MG/125MG TABLETS (FP) PO ONE (21:50)
[2018-09-05] MEDS ORDERED: OSELTAMIVIR PHOSPHATE 75 MG CAPSULE PO ONE (21:58)
[2018-09-05] MEDS ORDERED: OSELTAMIVIR PHOSPHATE 75 MG CAPSULE ONE (22:21)
[2018-09-05] MEDS ORDERED: ACETAMINOPHEN 325 MG TABLET (FP) ONE (22:21)
[2018-09-05] MEDS ORDERED: AMOX TR/POT CLAV 875MG/125MG TABLETS (FP) ONE (22:23)
--- NOTE | 2018-09-05 23:50 | PN ---
Teaching Attending Note Name of Resident: Jackie Zamudio ATTENDING PHYSICIAN STATEMENT I saw and evaluated the patient. I reviewed the resident's note and discussed the case with the resident. I agree with the resident's findings and plan as documented. SUBJECTIVE: Patient is a 42 year old woman with PMH of polysubstance abuse (heroin, nicotine , alcohol, cocaine), Tobacco use who is presenting via EMS from [facility] with complaints of fever and generalized body aches for three days. She had one episode of NBNB vomiting yesterday. She went to detox at [facility] two days ago , but denies ever using IVDU. Pateint has been taking ibuprofen and motrin for fever, which have improved her symptoms. Has cough with greenish sputum. She denies sorethroat, headache, syncope, chest pain, SOB, abdominal pain, urinary symptoms, or diarrhea/constipation. Patient is uncooperative and will only provide limited ROS. She denies any recent travel or known sick contacts. Her LMP was 3 days ago and she does not remember whether she took the Flu vaccine. OBJECTIVE: Alert Vital Signs Period Temp Pulse Resp BP Sys/Cobian Pulse Ox Last 24 Hr 101.3 F 103 20 100/62 98 HEENT: No Jaundice, eye redness or discharge, PERRLA, EOMI. Normocephalic, atraumatic. External ears are normal and hearing is grossly intact. No nasal discharge. Neck: Supple, nontender. No palpable adenopathy or thyromegaly. No JVD Chest: Good effort. Clear to auscultation and percussion. Heart: Regular. No S3, rub or murmur Abdomen: Not distended, soft, nontender and no HSM. No rebound or guarding. Normal bowel sounds. Ext: Peripheral pulses intact. No leg edema. Skin: Warm and dry. No petechiae, rash or ecchymosis. Neuro: Alert. Oriented x3. Sluggish. CN 2-12 grossly intact. No tremors or asterexis. Sensation grossly intact in all four extremities and DTR are symmetric. Psych: Appropriate mood and affect. Good insight. Home Medications Medication Instructions Recorded Naloxone HCl [Narcan] 4 mg NS ASDIR PRN 09/04/18 Amoxicillin/Potassium Clav 1 each PO BID 7 Days #14 tablet 09/05/18 [Augmentin 875-125 Tablet] Oseltamivir Phosphate [Tamiflu] 75 mg PO BID 5 Days #10 capsule 09/05/18 Abnormal Lab Results 09/05/18 21:19 Influenza A (Rapid) Positive A ASSESSMENT AND PLAN: 1. Sepsis due to Influenza A - No acute abnormality on CXR. No pharyngeal injection or exudates. No significant ST-T wave changes on EKG. Will get urine legionella antigen. Being treated with Tamiflu. Add azithromycin and rocepin - possible atypical pneumonia?. Continue IV hydration. Consult ID. 2. Polysubstance and Alcohol abuse - Implement Healthcare IT alcohol withdrawal protocol. Monitor her closely on telemetry for withdrawal symptoms. Implement neurochecks, seizure, fall and aspiration precautions. Treat with thiamine and folic acid and monitor electrolytes (Ca,Mg,K,P). 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 Consult medical charge entry specialist. Refer to alcohol/drug detox upon discharge. 3. DVT prophylaxis - Lovenox 40 mg SQ q 24 hours. 4. Advance directives - Full code
--- NOTE | 2018-09-06 00:21 | HP ---
CHIEF COMPLAINT: fever, generalized body aches/weakness, x3 days PCP: HISTORY OF PRESENT ILLNESS: 42F w/ pmhx of polysubstance abuse (heroin, cocaine, tobacco, alcohol) was sent to the ED from [facility] after being found febrile with generalized body aches. Pt states she came to [facility] for alcoholic/heroine rehab last Wednesday, but started feeling sick around that time. She endorses fever, generalized body aches, malaise, and feeling sluggish. She also admits to a cough with productive green sputum and dypsnea on exertion. She denies taking anything for her symptoms since they started. Admits to some constipation, but denies garcia/d, n /v, abd pain, diarrhea, blood in urine/stool. She also denies hx of lung or heart disease, and denies recent sick contacts. In the ED she was found to be wandering in the halls trying to lie down in other patient's beds. Per ED, pt was going to be discharged back to [facility], however because she was +flu and needed droplet/isolation precautions, [facility] was unable to accept her at this time as they do not do isolation beds at the facility. ER course was notable for: (1) Temp 101.3, HR 103, BP 100/62, +Influenza A, +Group A strep (2) Augmentin 875 and Tamiflu given (3) CXR was neg for acute pathology Recent Travel: Denies PAST MEDICAL HISTORY: Polysubstance abuse anemia PAST SURGICAL HISTORY: Denies Social History: Smoking: Denies Alcohol: Drinks about 1 6pack of beer a week, last drink was 1 week ago Drugs: Started snorting heroin 05/2018, has been using 2 bags per session ever since Family History: Denies Allergies No Known Allergies Allergy (Verified 09/05/18 20:51) HOME MEDICATIONS: Home Medications Medication Instructions Recorded Naloxone HCl [Narcan] 4 mg NS ASDIR PRN 09/04/18 Amoxicillin/Potassium Clav 1 each PO BID 7 Days #14 tablet 09/05/18 [Augmentin 875-125 Tablet] Oseltamivir Phosphate [Tamiflu] 75 mg PO BID 5 Days #10 capsule 09/05/18 REVIEW OF SYSTEMS CONSTITUTIONAL: +fever, diaphoresis, generalized weakness, malaise Absent: chills, loss of appetite, weight change HEENT: Absent: rhinorrhea, nasal congestion, throat pain, throat swelling, difficulty swallowing, mouth swelling, ear pain, eye pain, visual changes CARDIOVASCULAR: Absent: chest pain, syncope, palpitations, irregular heart rate, lightheadedness , peripheral edema RESPIRATORY: +cough with productive green sputum, shortness of breath, dyspnea with exertion Absent: orthopnea, wheezing, stridor, hemoptysis GASTROINTESTINAL: +constipation Absent: abdominal pain, abdominal distension, nausea, vomiting, diarrhea, melena , hematochezia GENITOURINARY: Absent: dysuria, frequency, urgency, hesitancy, hematuria MUSCULOSKELETAL: +myalgia Absent:arthralgia, joint swelling, back pain, neck pain NEUROLOGIC: Absent: headache, focal weakness or paresthesias, dizziness, unsteady gait, seizure, mental status changes PHYSICAL EXAMINATION Vital Signs - 24 hr 09/05/18 20:30 Temperature 101.3 F H Pulse Rate 103 H Respiratory 20 Rate Blood Pressure 100/62 O2 Sat by Pulse 98 Oximetry (%) GENERAL: Awake and alert, although with sluggish speech. Slow to respond to questions. HEENT: AT/NC. EOMI. AKASH. Moist mucus membranes, no exudates or erythema seen. NECK: Normal range of motion, supple without lymphadenopathy, JVD, or masses. LUNGS: Poor inspiratory effort, although no wheezes/crackles/rales noted. HEART: RRR. Normal S1, S2. No murmurs noted. ABDOMEN: Soft, NT/ND. Normoactive BS. No rebound tenderness/guarding. No masses noted. MUSCULOSKELETAL: Normal range of motion at all joints. No bony deformities or tenderness. No CVA tenderness. UPPER EXTREMITIES: 2+ pulses, warm, well-perfused. No cyanosis. No clubbing. No peripheral edema. LOWER EXTREMITIES: 2+ pulses, warm, well-perfused. No calf tenderness. No peripheral edema. NEUROLOGICAL: Facial muscles intact, normal speech. No tongue deviation. 5/5 muscle strength u/l b/l extremities PSYCHIATRIC: Cooperative. Good eye contact. Appropriate mood and affect. SKIN: Warm, dry, normal turgor, no rashes or lesions noted, normal capillary refill. Laboratory Results - last 24 hr 09/05/18 09/05/18 21:19 21:20 Influenza A (Rapid) Positive A Influenza B (Rapid) Negative Group A Strep Rapid Positive IMAGING: * CXR: Neg for acute pathology. ASSESSMENT/PLAN: 42F w/ pmhx of polysubstance abuse (heroin, cocaine, tobacco, alcohol) was sent to the ED from [facility] after being found febrile with generalized body aches. #Viral Syndrome 2/2 Influenza A; ? concomitant atypical pneumonia -Tamiflu 75 x5 days to treat influenza -Will also give Ceftriaxone 1gm IV and Azithromycin 500 mg IV x1 dose to treat for possible atypical pneumonia; Will defer continuation of IV antibiotics to day team if needed. Consider ID consult. -Urine Legionella Ag ordered -IVf #Polysubstance Abuse -Cont Librium protocol per [facility] records. Pt currently on Librium 15 Q6H. Check records when to cont with tapered dosages. -Cont Methadone per [facility] records. Currently on Methadone 10 mg Q6H -Drug cessation counseling -Detox consult #Prophylaxis -Lovenox 40 SQ #FEN -NS @ 83 x2bags -recheck BMP in AM -Regular diet dispo -admit to inpt med-surg Visit type - Emergency Visit Emergency Visit: Yes ED Registration Date: 09/05/18 Care time: The patient presented to the Emergency Department on the above date and was hospitalized for further evaluation of their emergent condition. - New Patient This patient is new to me today: Yes Date on this admission: 09/06/18 - Critical Care Critical Care patient: No
[2018-09-06] MEDS ORDERED: CEFTRIAXONE 1 GM in DEXTROSE 5%-WATER - 100 ML IVPB ONE (00:23)
[2018-09-06] MEDS ORDERED: AZITHROMYCIN IVPB 500 MG in DEXTROSE 5%-WATER - 250 ML IVPB ONE (00:24)
[2018-09-06] MEDS ORDERED: chlordiazePOXIDE HCL 25 MG CAPSULE PO PRN (00:50)
[2018-09-06] MEDS ORDERED: CEFTRIAXONE 1 GM/50 ML BAG ONE (00:55)
[2018-09-06] MEDS ORDERED: AZITHROMYCIN IVPB 500 MG/250 ML BAG IVPB ONE (01:57)
[2018-09-06] MEDS: chlordiazePOXIDE 5 MG CAPSULE PO SCH ×3 (03:20→17:39)
[2018-09-06] MEDS: METHADONE HCL 10 MG TABLET PO SCH (03:20)
[2018-09-06] MEDS: SODIUM CHLORIDE 1,000 ML IV SCH (03:41)
[2018-09-06] MEDS ORDERED: chlordiazePOXIDE HCL 25 MG CAPSULE PO SCH (05:00)
[2018-09-06 06:32] LABS: ALBUMIN 3.1 g/dl (3.4-5.0); ALK PHOS 50 U/L (45-117); ANION GAP 8 MMOL/L (8-16); BILIRUBIN,TOTAL 0.1 mg/dL (0.2-1); BLOOD UREA NITROGEN 11 mg/dL (7-18); CALCIUM 8.1 mg/dL (8.5-10.1); CHLORIDE 109 mmol/L (98-107); CO2 22 mmol/L (21-32); CREATININE 0.8 mg/dL (0.55-1.3); GLUCOSE,RANDOM 79 mg/dL (74-106); POTASSIUM 4.4 mmol/L (3.5-5.1); SGOT/AST 12 U/L (15-37); SGPT/ALT 13 U/L (13-61); SODIUM 139 mmol/L (136-145); TOT PROT 6.3 g/dl (6.4-8.2)
[2018-09-06 06:56] LABS: BASO % 0.3 % (0-2.0); EOS % 1.6 % (0-4.5); HEMATOCRIT 29.4 % (32.4-45.2); HEMOGLOBIN 10.2 GM/dL (10.7-15.3); LYMPH % 47.6 % (8-40); MCH 32.5 pg (25.7-33.7); MCHC 34.5 g/dl (32.0-36.0); MEAN CELL VOLUME 94.3 fl (80-96); MEAN PLT VOLUME 8.5 fl (7.5-11.1); MONO % 10.6 % (3.8-10.2); NEUT % 39.9 % (42.8-82.8); PLATELET COUNT 225 K/MM3 (134-434); RBC 3.12 M/mm3 (3.60-5.2); RDW 15.9 % (11.6-15.6); WHITE BLOOD COUNT 4.3 K/mm3 (4.0-10.0)
[2018-09-06] MEDS ORDERED: AMOX TR/POT CLAV 875MG/125MG TABLETS (FP) PO SCH (08:00)
[2018-09-06] MEDS ORDERED: OSELTAMIVIR PHOSPHATE 75 MG CAPSULE PO SCH (10:00)
[2018-09-06] MEDS: ENOXAPARIN NA (PORCINE) 40 MG/0.4 ML DISP.SYRIN SQ SCH (11:26)
[2018-09-06] MEDS: cloNIDine HCL 0.1 MG TABLET PO SCH ×2 (11:27→21:35)
[2018-09-06] MEDS: NICOTINE 21 MG/24 HOURS TOPICAL PATCH TD SCH (11:27)
--- NOTE | 2018-09-06 13:47 | EKG ---
Test Reason : Blood Pressure : / mmHG Vent. Rate : 094 BPM Atrial Rate : 094 BPM P-R Int : 110 ms QRS Dur : 072 ms QT Int : 320 ms P-R-T Axes : 051 071 028 degrees QTc Int : 400 ms SINUS RHYTHM WITH SHORT WY OTHERWISE NORMAL ECG WHEN COMPARED WITH ECG OF 04-SEP-2018 13:26, NO SIGNIFICANT CHANGE WAS FOUND Confirmed by MD Stone Daniel ([id number]) on 09/06/2018 1:47:36 PM Referred By: Confirmed By:Jonel Stone MD
--- NOTE | 2018-09-06 15:12 | PN ---
Progress Note (short form) - Note Progress Note: SUBJECTIVE: Asking for her meds. Admits to cough and fever. No hemoptysis/chest pain. No tremor or hallucinations. OBJECTIVE: Afebrile, Hemodynamically Stable. Fidgety, mildly agitated, walking around the ED, unable to sit still. Last Vital Signs Temp Pulse Resp BP Pulse Ox 98.5 F 70 16 105/57 L 100 09/06/18 12:00 09/06/18 12:00 09/06/18 12:00 09/06/18 12:00 09/06/18 09:00 HEENT - Atraumatic, Normocephalic. Heart - S1, S2, RRR Lungs - clear to auscultation, no crackles/wheeze. Abdomen - Soft, non-tender. Bowel Sounds normal. Extremities - no edema/no calf tenderness Neuro - AAO x 3. Tone/Power normal all 4 extremities. Laboratory Results - last 24 hr 09/05/18 09/05/18 09/06/18 21:19 21:20 05:30 WBC 4.3 RBC 3.12 L Hgb 10.2 L Hct 29.4 L MCV 94.3 MCH 32.5 MCHC 34.5 RDW 15.9 H Plt Count 225 MPV 8.5 Absolute Neuts (auto) 1.7 Neutrophils % 39.9 L Lymphocytes % 47.6 H Monocytes % 10.6 H Eosinophils % 1.6 Basophils % 0.3 Nucleated RBC % 0 Sodium Potassium Chloride Carbon Dioxide Anion Gap BUN Creatinine Creat Clearance w eGFR Random Glucose Calcium Total Bilirubin AST ALT Alkaline Phosphatase Total Protein Albumin Beta HCG, Quant Influenza A (Rapid) Positive A Influenza B (Rapid) Negative Group A Strep Rapid Positive 09/06/18 09/06/18 05:30 06:30 WBC RBC Hgb Hct MCV MCH MCHC RDW Plt Count MPV Absolute Neuts (auto) Neutrophils % Lymphocytes % Monocytes % Eosinophils % Basophils % Nucleated RBC % Sodium 139 Potassium 4.4 Chloride 109 H Carbon Dioxide 22 Anion Gap 8 BUN 11 Creatinine 0.8 Creat Clearance w eGFR > 60 Random Glucose 79 Calcium 8.1 L Total Bilirubin 0.1 L AST 12 L ALT 13 Alkaline Phosphatase 50 Total Protein 6.3 L Albumin 3.1 L Beta HCG, Quant < 1.0 Cancelled Influenza A (Rapid) Influenza B (Rapid) Group A Strep Rapid Current Medications Generic Name Dose Route Start Last Admin Trade Name Freq PRN Reason Stop Dose Admin Chlordiazepoxide HCl 15 mg 09/06/18 03:15 09/06/18 03:20 Librium - PO 15 mg Q6H MIHAELA Administration Clonidine 0.1 mg 09/06/18 10:00 09/06/18 11:27 Catapres - PO Not Given BID MIHAELA Cyclobenzaprine HCl 10 mg 09/06/18 03:00 Flexeril - PO Q8H PRN MUSCLE SPASMS Enoxaparin Sodium 40 mg 09/06/18 10:00 09/06/18 11:26 Lovenox - SQ 40 mg DAILY MIHAELA Administration Sodium Chloride 1,000 mls @ 83 mls/hr 09/06/18 03:30 09/06/18 03:41 Normal Saline - IV 09/07/18 15:33 83 mls/hr ASDIR MIHAELA Administration Melatonin 5 mg 09/06/18 03:00 Melatonin PO HS PRN INSOMNIA Methadone HCl 10 mg 09/06/18 03:15 09/06/18 03:20 Dolophine - PO 10 mg Q6H MIHAELA Administration Nicotine 21 mg 09/06/18 10:00 09/06/18 11:27 Nicoderm Patch - TD 21 mg DAILY MIHAELA Administration Oseltamivir Phosphate 75 mg 09/06/18 10:00 09/06/18 11:27 Tamiflu - PO 09/15/18 10:01 75 mg DAILY MIHAELA Administration Thiamine HCl 100 mg 09/06/18 22:00 Vitamin B1 - PO HS [facility] ASSESSMENT/PLAN: 42 year old female with history of Polysubstance Abuse (Heroin, Cocaine, Alcohol , Tobacco) sent to ED from [facility] with fever and myalgia. She reports cough productive of greenish sputum - no hemoptysis. Found to be influenza A positive. 1. Sepsis secondary to Influenza A CXR 09/05/18 - negative Started on Tamiflu and on Abx empirically for Pneumonia Will discontinue Abx and repeat CXR PA/Lat Currently Hemodynamically Stable. Continue Tamiflu for 5 days. 2. Polysubstance Abuse (Hearoin, Cocaine, Alcohol, Tobacco) Resmed on Detox medications at [facility] including Methadone, Librium , Clonidine Addiction Medicine consult placed. MVI, Thiamine, Folic Acid. Nicotine patch DVT Px - Lovenox SQ Visit type - Emergency Visit Emergency Visit: Yes ED Registration Date: 09/05/18 Care time: The patient presented to the Emergency Department on the above date and was hospitalized for further evaluation of their emergent condition. - New Patient This patient is new to me today: Yes Date on this admission: 09/06/18 - Critical Care Critical Care patient: No - Discharge Referral Referred to [facility] No
[2018-09-06] MEDS ORDERED: METHADONE HCL 10 MG TABLET PO ONE (16:30)
[2018-09-06] MEDS: AMOX TR/POT CLAV 875MG/125MG TABLETS (FP) PO SCH (16:49)
--- NOTE | 2018-09-06 17:11 | PN ---
[facility] Progress Note (SOAP) Subjective: pt referred for consultation , transferred from [facility] for cold symptoms , found to have influenza and Strep , started Librium and Methadone protocol , and wishes to continue detox while in isolation / droplet precautions. Active Medications Amoxicillin/Clavulanate Potassium (Augmentin - 875mg Tablet) 1 tab PO BID@0800, 1730 [facility] Last Admin: 09/06/18 16:49 Dose: 1 tab Chlordiazepoxide HCl (Librium -) 15 mg PO Q6HPO [facility] Stop: 09/07/18 12:01 Last Admin: 09/06/18 16:49 Dose: 15 mg Clonidine (Catapres -) 0.1 mg PO BID [facility] Last Admin: 09/06/18 11:27 Dose: Not Given Cyclobenzaprine HCl (Flexeril -) 10 mg PO Q8H PRN PRN Reason: MUSCLE SPASMS Enoxaparin Sodium (Lovenox -) 40 mg SQ DAILY [facility] Last Admin: 09/06/18 11:26 Dose: 40 mg Sodium Chloride (Normal Saline -) 1,000 mls @ 83 mls/hr IV ASDIR [facility] Stop: 09/07/18 15:33 Last Admin: 09/06/18 03:41 Dose: 83 mls/hr Melatonin (Melatonin) 5 mg PO HS PRN PRN Reason: INSOMNIA Nicotine (Nicoderm Patch -) 21 mg TD DAILY [facility] Last Admin: 09/06/18 11:27 Dose: 21 mg Oseltamivir Phosphate (Tamiflu -) 75 mg PO BID [facility] Stop: 09/11/18 21:59 Thiamine HCl (Vitamin B1 -) 100 mg PO HS [facility] Objective: 09/06/18 17:10 CBC, BMP 09/06/18 05:30 09/06/18 05:30 Vital Signs - 24 hr 09/05/18 09/06/18 09/06/18 20:30 01:00 06:14 Temperature 101.3 F H 99.8 F H Pulse Rate 103 H Pulse Rate [ 91 H Apical] Respiratory 20 18 Rate Blood Pressure 100/62 Blood Pressure 110/58 L [Left Arm] O2 Sat by Pulse 98 98 Oximetry (%) 09/06/18 09/06/18 09/06/18 09:00 10:00 12:00 Temperature 98.1 F 98.5 F Pulse Rate 84 70 Pulse Rate [ Apical] Respiratory 12 16 Rate Blood Pressure 94/67 105/57 L Blood Pressure [Left Arm] O2 Sat by Pulse 100 Oximetry (%) wnwd , concerned about making phone call to family , otherwise reports generalized bodyaches and loss of appetite , denies tremors , diarrhea . Assessment: opioid dependence alcohol dependence nicotine dependence. Plan: continue taper from [facility] .
[2018-09-06] MEDS ORDERED: hydrOXYzine PAMOATE 25 MG CAPSULE (FP) PO PRN (17:26)
[2018-09-06] MEDS ORDERED: NICOTINE POLACRILEX 2 MG GUM BUC PRN (17:26)
[2018-09-06] MEDS ORDERED: PT OWN MED DRAWER 7, Y5N ONE (21:00)
[2018-09-06] MEDS: ACETAMINOPHEN 325 MG TABLET (FP) PO PRN (21:36)
[2018-09-06] MEDS: OSELTAMIVIR PHOSPHATE 75 MG CAPSULE PO SCH (21:37)
[2018-09-06] MEDS: THIAMINE HCL 100 MG TABLET (FP) PO SCH (21:37)
[2018-09-06] MEDS: MELATONIN 5 MG TABLETS PO PRN (21:38)
[2018-09-07] MEDS: chlordiazePOXIDE 5 MG CAPSULE PO SCH ×3 (00:24→12:56)
[2018-09-07] MEDS: SODIUM CHLORIDE 1,000 ML IV SCH (04:30)
[2018-09-07] MEDS ORDERED: chlordiazePOXIDE HCL 25 MG CAPSULE PO SCH (05:00)
[2018-09-07] MEDS ORDERED: PT OWN MED DRAWER 7, Y5N ONE ×3 (06:20→22:33)
[2018-09-07] MEDS: AMOX TR/POT CLAV 875MG/125MG TABLETS (FP) PO SCH ×2 (08:55→18:11)
[2018-09-07] MEDS: OSELTAMIVIR PHOSPHATE 75 MG CAPSULE PO SCH ×2 (09:15→22:42)
[2018-09-07] MEDS: ENOXAPARIN NA (PORCINE) 40 MG/0.4 ML DISP.SYRIN SQ SCH (09:16)
[2018-09-07] MEDS: NICOTINE 21 MG/24 HOURS TOPICAL PATCH TD SCH (09:17)
[2018-09-07] MEDS: cloNIDine HCL 0.1 MG TABLET PO SCH ×2 (09:19→22:43)
[2018-09-07] MEDS ORDERED: METHADONE HCL 10 MG TABLET PO ONE (10:00)
[2018-09-07] MEDS ORDERED: METHADONE HCL 5 MG TABLET PO SCH (10:00)
--- NOTE | 2018-09-07 16:23 | PN ---
Progress Note, Physician Chief Complaint: Ms Mccoy says she is feeling upset today, but feeling better. Requests to keep her IV line in so she can get fluids to gain weight. Says she still has a productive cough. Denies cp and n/v. Says she has lost a lot of weight and needs ensure with her meals. Says she does not want to eat the food because she does not like it. - Current Medication List Current Medications: Active Medications Acetaminophen (Tylenol -) 650 mg PO Q6H PRN PRN Reason: PAIN OR FEVER Last Admin: 09/06/18 21:36 Dose: 650 mg Amoxicillin/Clavulanate Potassium (Augmentin - 875mg Tablet) 1 tab PO BID@0800, 1730 [facility] Last Admin: 09/07/18 08:55 Dose: 1 tab Chlordiazepoxide HCl (Librium -) 5 mg PO S8F-SAB [facility] Stop: 09/09/18 11:01 Chlordiazepoxide HCl (Librium -) 25 mg PO Q4H PRN PRN Reason: WITHDRAWAL(CONT SUBST) Stop: 09/09/18 17:22 Chlordiazepoxide HCl (Librium -) 10 mg PO V2D-MEP [facility] Stop: 09/08/18 11:01 Clonidine (Catapres -) 0.1 mg PO BID [facility] Last Admin: 09/07/18 09:19 Dose: 0.1 mg Cyclobenzaprine HCl (Flexeril -) 10 mg PO Q8H PRN PRN Reason: MUSCLE SPASMS Enoxaparin Sodium (Lovenox -) 40 mg SQ DAILY [facility] Last Admin: 09/07/18 09:16 Dose: Not Given Hydroxyzine Pamoate (Vistaril -) 25 mg PO Q4H PRN PRN Reason: AGITATION Melatonin (Melatonin) 5 mg PO HS PRN PRN Reason: INSOMNIA Last Admin: 09/06/18 21:38 Dose: 5 mg Methadone HCl (Dolophine -) 5 mg PO DAILY [facility] Stop: 09/09/18 09:59 Nicotine (Nicoderm Patch -) 21 mg TD DAILY [facility] Last Admin: 09/07/18 09:17 Dose: 21 mg Nicotine Polacrilex (Nicorette Gum -) 2 mg BUC Q2H PRN PRN Reason: NICOTINE REPLACEMENT RX Oseltamivir Phosphate (Tamiflu -) 75 mg PO BID [facility] Stop: 09/11/18 21:59 Last Admin: 09/07/18 09:15 Dose: 75 mg Thiamine HCl (Vitamin B1 -) 100 mg PO [facility] Last Admin: 09/06/18 21:37 Dose: 100 mg - Objective Vital Signs: Vital Signs Temperature 37.3 C 09/07/18 06:00 Pulse Rate 105 H 09/07/18 10:00 Respiratory Rate 18 09/07/18 10:00 Blood Pressure 102/41 L 09/07/18 10:00 O2 Sat by Pulse Oximetry (%) 100 09/07/18 10:00 Constitutional: Yes: Well Nourished, No Distress, Calm Cardiovascular: Yes: Regular Rate and Rhythm. No: Gallop, Murmur, Rub Respiratory: Yes: Regular, Cough. No: CTA Bilaterally, Rales, Rhonchi, Wheezes Gastrointestinal: Yes: Normal Bowel Sounds, Soft. No: Distention, Tenderness Extremities: Yes: WNL Edema: No Labs: CBC, BMP 09/06/18 05:30 09/06/18 05:30 Problem List - Problems (1) Influenza A Assessment/Plan: -patient feels improved -continue tamiflu 75mg bid, dose 2/10 -continue droplet precautions currently -can discontinue droplet precautions 24 hours after resolution of fever or symptoms, whichever is longer -last fever yesterday at 7pm, still with cough Code(s): J10.1 - FLU DUE TO OTH IDENT INFLUENZA VIRUS W OTH RESP MANIFEST (2) Alcohol dependence with uncomplicated withdrawal Assessment/Plan: -appreciate addiction medicine assistance -continue librium taper Code(s): F10.230 - ALCOHOL DEPENDENCE WITH WITHDRAWAL, UNCOMPLICATED (3) Strep pharyngitis Assessment/Plan: -continue augmentin Code(s): J02.0 - STREPTOCOCCAL PHARYNGITIS (4) Opioid dependence with withdrawal Assessment/Plan: -continue methadone Code(s): F11.23 - OPIOID DEPENDENCE WITH WITHDRAWAL Assessment/Plan Dispo -transfer back to [facility] when no longer needs isolation
[2018-09-07] MEDS ORDERED: chlordiazePOXIDE 5 MG CAPSULE ONE ×2 (17:31→22:32)
[2018-09-07] MEDS: chlordiazePOXIDE HCL 10 MG CAPSULE PO SCH ×2 (17:55→22:44)
[2018-09-07] MEDS: ACETAMINOPHEN 325 MG TABLET (FP) PO PRN (18:39)
[2018-09-07] MEDS: THIAMINE HCL 100 MG TABLET (FP) PO SCH (22:43)
[2018-09-08] MEDS: ACETAMINOPHEN 325 MG TABLET (FP) PO PRN ×2 (02:04→22:17)
[2018-09-08] MEDS: chlordiazePOXIDE HCL 25 MG CAPSULE PO PRN ×2 (02:04→15:28)
[2018-09-08] MEDS ORDERED: chlordiazePOXIDE 5 MG CAPSULE PO SCH (05:00)
[2018-09-08] MEDS: chlordiazePOXIDE 5 MG CAPSULE PO SCH ×5 (06:00→22:21)
[2018-09-08 08:02] LABS: BASO % 0.4 % (0-2.0); HEMATOCRIT 27.5 % (32.4-45.2); HEMOGLOBIN 9.2 GM/dL (10.7-15.3); MCH 31.6 pg (25.7-33.7); MCHC 33.6 g/dl (32.0-36.0); MEAN PLT VOLUME 8.7 fl (7.5-11.1); NEUT % 22.6 % (42.8-82.8); PLATELET COUNT 234 K/MM3 (134-434); RBC 2.92 M/mm3 (3.60-5.2); RDW 15.8 % (11.6-15.6); WHITE BLOOD COUNT 3.1 K/mm3 (4.0-10.0)
[2018-09-08 08:14] LABS: ANION GAP 4 MMOL/L (8-16); BLOOD UREA NITROGEN 20 mg/dL (7-18); CALCIUM 8.3 mg/dL (8.5-10.1); CHLORIDE 109 mmol/L (98-107); CO2 28 mmol/L (21-32); CREATININE 0.7 mg/dL (0.55-1.3); GLUCOSE,RANDOM 75 mg/dL (74-106); MAGNESIUM 2.4 mg/dL (1.8-2.4); PHOSPHOROUS 5.4 mg/dL (2.5-4.9); POTASSIUM 4.5 mmol/L (3.5-5.1); SODIUM 141 mmol/L (136-145)
[2018-09-08] MEDS: OSELTAMIVIR PHOSPHATE 75 MG CAPSULE PO SCH ×2 (10:30→21:48)
[2018-09-08] MEDS: NICOTINE 21 MG/24 HOURS TOPICAL PATCH TD SCH (10:30)
[2018-09-08] MEDS ORDERED: PT OWN MED DRAWER 7, Y5N ONE ×2 (10:35→22:02)
[2018-09-08] MEDS: METHADONE HCL 5 MG TABLET PO SCH ×2 (10:42→10:45)
[2018-09-08] MEDS: AMOX TR/POT CLAV 875MG/125MG TABLETS (FP) PO SCH ×2 (10:42→17:39)
[2018-09-08] MEDS: cloNIDine HCL 0.1 MG TABLET PO SCH ×2 (10:45→22:18)
[2018-09-08] MEDS: ENOXAPARIN NA (PORCINE) 40 MG/0.4 ML DISP.SYRIN SQ SCH (10:46)
--- NOTE | 2018-09-08 10:46 | PN ---
Progress Note, Physician Chief Complaint: Ms Mccoy complains of nausea and vomiting. Complaining that once the IVF were stopped "everything went wrong". Denies cp or sob. Still coughing but less. - Current Medication List Current Medications: Active Medications Acetaminophen (Tylenol -) 650 mg PO Q6H PRN PRN Reason: PAIN OR FEVER Last Admin: 09/08/18 02:04 Dose: 650 mg Amoxicillin/Clavulanate Potassium (Augmentin - 875mg Tablet) 1 tab PO BID@0800, 1730 [facility] Last Admin: 09/07/18 18:11 Dose: 1 tab Chlordiazepoxide HCl (Librium -) 5 mg PO [id number] [facility] Stop: 09/09/18 11:01 Chlordiazepoxide HCl (Librium -) 25 mg PO Q4H PRN PRN Reason: WITHDRAWAL(CONT SUBST) Stop: 09/09/18 17:22 Last Admin: 09/08/18 02:04 Dose: 25 mg Chlordiazepoxide HCl (Librium -) 10 mg PO [id number] [facility] Stop: 09/08/18 11:01 Last Admin: 09/08/18 06:00 Dose: 10 mg Clonidine (Catapres -) 0.1 mg PO BID [facility] Last Admin: 09/07/18 22:43 Dose: 0.1 mg Cyclobenzaprine HCl (Flexeril -) 10 mg PO Q8H PRN PRN Reason: MUSCLE SPASMS Enoxaparin Sodium (Lovenox -) 40 mg SQ DAILY [facility] Last Admin: 09/07/18 09:16 Dose: Not Given Hydroxyzine Pamoate (Vistaril -) 25 mg PO Q4H PRN PRN Reason: AGITATION Melatonin (Melatonin) 5 mg PO HS PRN PRN Reason: INSOMNIA Last Admin: 09/06/18 21:38 Dose: 5 mg Methadone HCl (Dolophine -) 5 mg PO DAILY [facility] Stop: 09/09/18 09:59 Nicotine (Nicoderm Patch -) 21 mg TD DAILY [facility] Last Admin: 09/07/18 09:17 Dose: 21 mg Nicotine Polacrilex (Nicorette Gum -) 2 mg BUC Q2H PRN PRN Reason: NICOTINE REPLACEMENT RX Oseltamivir Phosphate (Tamiflu -) 75 mg PO BID [facility] Stop: 09/11/18 21:59 Last Admin: 09/07/18 22:42 Dose: 75 mg Promethazine HCl (Phenergan Liquid -) 25 mg PO ONCE ONE Stop: 09/08/18 10:43 Promethazine HCl (Phenergan Liquid -) 25 mg PO Q6H PRN PRN Reason: NAUSEA AND/OR VOMITING Thiamine HCl (Vitamin B1 -) 100 mg PO HS [facility] Last Admin: 09/07/18 22:43 Dose: 100 mg - Objective Vital Signs: Vital Signs Temperature 36.8 C 09/08/18 05:39 Pulse Rate 74 09/08/18 05:39 Respiratory Rate 18 09/08/18 05:39 Blood Pressure 104/53 L 09/08/18 05:39 O2 Sat by Pulse Oximetry (%) 100 09/07/18 20:15 Constitutional: Yes: Well Nourished, No Distress, Calm Cardiovascular: Yes: Regular Rate and Rhythm. No: Gallop, Murmur, Rub Respiratory: Yes: Regular, CTA Bilaterally. No: Rales, Rhonchi, Wheezes Gastrointestinal: Yes: Normal Bowel Sounds, Soft. No: Distention, Tenderness Extremities: Yes: WNL Edema: No Labs: CBC, BMP 09/08/18 06:00 09/08/18 06:00 Problem List - Problems (1) Influenza A Code(s): J10.1 - FLU DUE TO OTH IDENT INFLUENZA VIRUS W OTH RESP MANIFEST (2) Alcohol dependence with uncomplicated withdrawal Code(s): F10.230 - ALCOHOL DEPENDENCE WITH WITHDRAWAL, UNCOMPLICATED (3) Strep pharyngitis Code(s): J02.0 - STREPTOCOCCAL PHARYNGITIS (4) Opioid dependence with withdrawal Code(s): F11.23 - OPIOID DEPENDENCE WITH WITHDRAWAL Assessment/Plan (1) Influenza A Assessment/Plan: -patient feels improved -continue tamiflu 75mg bid, dose 4/10 -continue droplet precautions currently -can discontinue droplet precautions 24 hours after resolution of fever or symptoms, whichever is longer -last fever yesterday at 6pm, cough improving Code(s): J10.1 - FLU DUE TO OTH IDENT INFLUENZA VIRUS W OTH RESP MANIFEST (2) Alcohol dependence with uncomplicated withdrawal Assessment/Plan: -appreciate addiction medicine assistance -continue librium taper Code(s): F10.230 - ALCOHOL DEPENDENCE WITH WITHDRAWAL, UNCOMPLICATED (3) Strep pharyngitis Assessment/Plan: -continue augmentin Code(s): J02.0 - STREPTOCOCCAL PHARYNGITIS (4) Opioid dependence with withdrawal Assessment/Plan: -continue methadone Code(s): F11.23 - OPIOID DEPENDENCE WITH WITHDRAWAL (5) Nausea w/ vomiting -suspect most likely secondary to tamiflu -will add prn phenergan -monitor
[2018-09-08] MEDS ORDERED: PROMETHAZINE HCL ORAL SYRUP 6.25 MG/5 ML (BULK BOTTLE) PO PRN (11:04)
[2018-09-08] MEDS ORDERED: PROMETHAZINE HCL ORAL SYRUP 6.25 MG/5 ML (BULK BOTTLE) PO ONE (11:15)
[2018-09-08 13:27] LABS: ANISOCYTOSIS 0; MACROCYTOSIS 1+; PLATELET ESTIMATE NORMAL
[2018-09-08] MEDS: THIAMINE HCL 100 MG TABLET (FP) PO SCH (21:48)
[2018-09-08] MEDS: MELATONIN 5 MG TABLETS PO PRN (21:48)
[2018-09-09] MEDS ORDERED: chlordiazePOXIDE HCL 10 MG CAPSULE PO SCH (05:00)
[2018-09-09] MEDS: chlordiazePOXIDE 5 MG CAPSULE PO SCH ×3 (05:22→10:35)
[2018-09-09] MEDS ORDERED: PT OWN MED DRAWER 7, Y5N ONE ×2 (06:16→21:13)
[2018-09-09 06:52] LABS: BASO % 0.6 % (0-2.0); EOS % 4.8 % (0-4.5); HEMATOCRIT 29.1 % (32.4-45.2); HEMOGLOBIN 9.9 GM/dL (10.7-15.3); LYMPH % 69.9 % (8-40); MCH 32.2 pg (25.7-33.7); MEAN CELL VOLUME 94.6 fl (80-96); MEAN PLT VOLUME 8.5 fl (7.5-11.1); MONO % 6.8 % (3.8-10.2); NEUT % 17.9 % (42.8-82.8); PLATELET COUNT 263 K/MM3 (134-434); RBC 3.07 M/mm3 (3.60-5.2); RDW 15.6 % (11.6-15.6); WHITE BLOOD COUNT 3.3 K/mm3 (4.0-10.0)
[2018-09-09 08:09] LABS: ANION GAP 4 MMOL/L (8-16); BLOOD UREA NITROGEN 18 mg/dL (7-18); CALCIUM 8.5 mg/dL (8.5-10.1); CHLORIDE 111 mmol/L (98-107); CO2 26 mmol/L (21-32); CREATININE 0.8 mg/dL (0.55-1.3); GLUCOSE,RANDOM 77 mg/dL (74-106); MAGNESIUM 2.6 mg/dL (1.8-2.4); PHOSPHOROUS 4.7 mg/dL (2.5-4.9); POTASSIUM 4.3 mmol/L (3.5-5.1); SODIUM 141 mmol/L (136-145)
[2018-09-09] MEDS: METHADONE HCL 10 MG TABLET PO SCH (08:34)
[2018-09-09] MEDS: AMOX TR/POT CLAV 875MG/125MG TABLETS (FP) PO SCH ×2 (10:34→16:48)
[2018-09-09] MEDS: OSELTAMIVIR PHOSPHATE 75 MG CAPSULE PO SCH ×2 (10:35→21:15)
[2018-09-09] MEDS: NICOTINE 21 MG/24 HOURS TOPICAL PATCH TD SCH (10:35)
[2018-09-09] MEDS: ENOXAPARIN NA (PORCINE) 40 MG/0.4 ML DISP.SYRIN SQ SCH (10:35)
[2018-09-09] MEDS: ACETAMINOPHEN 325 MG TABLET (FP) PO PRN (10:36)
[2018-09-09] MEDS: cloNIDine HCL 0.1 MG TABLET PO SCH ×2 (10:45→21:15)
[2018-09-09 11:48] LABS: ALBUMIN 3.2 g/dl (3.4-5.0); ALK PHOS 52 U/L (45-117); BILIRUBIN,DIRECT 0.1 mg/dL (0.0-0.2); BILIRUBIN,TOTAL 0.1 mg/dL (0.2-1); CHOLESTEROL 142 mg/dL (50-200); HDL CHOLESTEROL 50 mg/dL (40-60); SGOT/AST 16 U/L (15-37); SGPT/ALT 23 U/L (13-61); TOT PROT 6.4 g/dl (6.4-8.2); TRIGLYCERIDES 95 mg/dL (0-150)
[2018-09-09] MEDS: chlordiazePOXIDE HCL 25 MG CAPSULE PO PRN ×2 (12:15→16:48)
[2018-09-09 12:38] LABS: ANISOCYTOSIS 2+; MACROCYTOSIS 0; OVALOCYTE 1+; PLATELET ESTIMATE NORMAL
--- NOTE | 2018-09-09 14:35 | PN ---
Progress Note, Physician Chief Complaint: Ms Mccoy is still having nausea and vomiting but now also saying she is having abdominal pain, flank pain, and diarrhea. Denies cp and sob. Asking for her methadone. - Current Medication List Current Medications: Active Medications Acetaminophen (Tylenol -) 650 mg PO Q6H PRN PRN Reason: PAIN OR FEVER Last Admin: 09/09/18 10:36 Dose: 650 mg Amoxicillin/Clavulanate Potassium (Augmentin - 875mg Tablet) 1 tab PO BID@0800, 1730 [facility] Last Admin: 09/09/18 10:34 Dose: 1 tab Chlordiazepoxide HCl (Librium -) 25 mg PO Q4H PRN PRN Reason: WITHDRAWAL(CONT SUBST) Stop: 09/09/18 17:22 Last Admin: 09/09/18 12:15 Dose: 25 mg Clonidine (Catapres -) 0.1 mg PO BID [facility] Last Admin: 09/09/18 10:45 Dose: 0.1 mg Cyclobenzaprine HCl (Flexeril -) 10 mg PO Q8H PRN PRN Reason: MUSCLE SPASMS Enoxaparin Sodium (Lovenox -) 40 mg SQ DAILY [facility] Last Admin: 09/09/18 10:35 Dose: 40 mg Melatonin (Melatonin) 5 mg PO HS PRN PRN Reason: INSOMNIA Last Admin: 09/08/18 21:48 Dose: 5 mg Nicotine (Nicoderm Patch -) 21 mg TD DAILY [facility] Last Admin: 09/09/18 10:35 Dose: 21 mg Nicotine Polacrilex (Nicorette Gum -) 2 mg BUC Q2H PRN PRN Reason: NICOTINE REPLACEMENT RX Oseltamivir Phosphate (Tamiflu -) 75 mg PO BID [facility] Stop: 09/11/18 21:59 Last Admin: 09/09/18 10:35 Dose: 75 mg Promethazine HCl (Phenergan Liquid -) 25 mg PO Q6H PRN PRN Reason: NAUSEA AND/OR VOMITING Last Admin: 09/09/18 10:36 Dose: 25 mg Thiamine HCl (Vitamin B1 -) 100 mg PO HS [facility] Last Admin: 09/08/18 21:48 Dose: 100 mg - Objective Vital Signs: Vital Signs Temperature 38.8 C H 09/09/18 10:15 Pulse Rate 94 H 09/09/18 10:15 Respiratory Rate 18 09/09/18 10:15 Blood Pressure 118/65 09/09/18 10:15 O2 Sat by Pulse Oximetry (%) 100 09/08/18 21:00 Constitutional: Yes: Well Nourished, No Distress, Calm Cardiovascular: Yes: Regular Rate and Rhythm. No: Gallop, Murmur, Rub Respiratory: Yes: Regular, CTA Bilaterally. No: Rales, Rhonchi, Wheezes Gastrointestinal: Yes: Normal Bowel Sounds, Soft. No: Distention, Tenderness Extremities: Yes: WNL Edema: No Labs: CBC, BMP 09/09/18 05:40 09/09/18 05:40 Problem List - Problems (1) Influenza A Code(s): J10.1 - FLU DUE TO OTH IDENT INFLUENZA VIRUS W OTH RESP MANIFEST (2) Alcohol dependence with uncomplicated withdrawal Code(s): F10.230 - ALCOHOL DEPENDENCE WITH WITHDRAWAL, UNCOMPLICATED (3) Strep pharyngitis Code(s): J02.0 - STREPTOCOCCAL PHARYNGITIS (4) Opioid dependence with withdrawal Code(s): F11.23 - OPIOID DEPENDENCE WITH WITHDRAWAL Assessment/Plan (1) Influenza A Assessment/Plan: -continue tamiflu dose 12/12 Code(s): J10.1 - FLU DUE TO OTH IDENT INFLUENZA VIRUS W OTH RESP MANIFEST (2) Alcohol dependence with uncomplicated withdrawal Assessment/Plan: -appreciate addiction medicine assistance -continue librium taper Code(s): F10.230 - ALCOHOL DEPENDENCE WITH WITHDRAWAL, UNCOMPLICATED (3) Strep pharyngitis Assessment/Plan: -continue augmentin day 3 Code(s): J02.0 - STREPTOCOCCAL PHARYNGITIS (4) Opioid dependence with withdrawal Assessment/Plan: -addiction medicine to continue methadone if needed Code(s): F11.23 - OPIOID DEPENDENCE WITH WITHDRAWAL (5) Nausea w/ vomiting -continues to have fever -also saying having flank pain and diarrhea -will check c diff -check LFTs and lipase -CT scan to check for pyelonephritis -urinalysis, urine cultures, BC for fevers -chest x-ray negative
[2018-09-09 14:41] LABS: LIPASE 147 U/L (73-393)
[2018-09-09 16:02] LABS: URINE APPEARANCE SLCLOUDY; URINE BILIRUBIN NEGATIVE (<2.0 mg/dL); URINE COLOR YELLOW; URINE GLUCOSE (UA) NEGATIVE (NEGATIVE); URINE KETONE NEGATIVE (NEGATIVE); URINE LEUK ESTERASE NEGATIVE (NEGATIVE); URINE NITRITE NEGATIVE (NEGATIVE); URINE PROTEIN 1+ (NEGATIVE); URINE UROBILINOGEN NEGATIVE mg/dL (0.2-1.0)
[2018-09-09 16:18] LABS: EPI CELLS RARE /HPF (FEW)
[2018-09-09] MEDS: MELATONIN 5 MG TABLETS PO PRN (21:15)
[2018-09-09] MEDS: CYCLOBENZAPRINE HCL 10 MG TABLET (FP) PO PRN (21:15)
[2018-09-09] MEDS: THIAMINE HCL 100 MG TABLET (FP) PO SCH (21:15)
[2018-09-10 06:49] LABS: BASO % 0.5 % (0-2.0); EOS % 3.7 % (0-4.5); HEMATOCRIT 30.3 % (32.4-45.2); HEMOGLOBIN 10.1 GM/dL (10.7-15.3); MCH 31.3 pg (25.7-33.7); MCHC 33.4 g/dl (32.0-36.0); MEAN CELL VOLUME 93.7 fl (80-96); MEAN PLT VOLUME 8.1 fl (7.5-11.1); MONO % 7.6 % (3.8-10.2); NEUT % 26.2 % (42.8-82.8); PLATELET COUNT 283 K/MM3 (134-434); RBC 3.23 M/mm3 (3.60-5.2); RDW 15.4 % (11.6-15.6); WHITE BLOOD COUNT 3.9 K/mm3 (4.0-10.0)
[2018-09-10 06:58] LABS: ANION GAP 6 MMOL/L (8-16); BLOOD UREA NITROGEN 19 mg/dL (7-18); CALCIUM 8.9 mg/dL (8.5-10.1); CHLORIDE 110 mmol/L (98-107); CO2 24 mmol/L (21-32); CREATININE 0.8 mg/dL (0.55-1.3); GLUCOSE,RANDOM 83 mg/dL (74-106); MAGNESIUM 2.3 mg/dL (1.8-2.4); PHOSPHOROUS 5.1 mg/dL (2.5-4.9); POTASSIUM 4.3 mmol/L (3.5-5.1); SODIUM 140 mmol/L (136-145)
[2018-09-10] MEDS: CYCLOBENZAPRINE HCL 10 MG TABLET (FP) PO PRN (07:44)
[2018-09-10] MEDS: AMOX TR/POT CLAV 875MG/125MG TABLETS (FP) PO SCH (07:44)
[2018-09-10] MEDS: NICOTINE 21 MG/24 HOURS TOPICAL PATCH TD SCH (09:03)
[2018-09-10] MEDS: cloNIDine HCL 0.1 MG TABLET PO SCH (09:03)
[2018-09-10] MEDS: OSELTAMIVIR PHOSPHATE 75 MG CAPSULE PO SCH ×2 (09:03→21:56)
[2018-09-10] MEDS: ENOXAPARIN NA (PORCINE) 40 MG/0.4 ML DISP.SYRIN SQ SCH (09:03)
[2018-09-10] MEDS: ACETAMINOPHEN 325 MG TABLET (FP) PO PRN (09:15)
[2018-09-10] MEDS: IBUPROFEN 400 MG TABLET (FP) PO PRN ×2 (11:19→21:56)
--- NOTE | 2018-09-10 11:20 | PN ---
Progress Note, Physician Chief Complaint: Ms Mccoy complains of joint pain. Also says still having diarrhea and nausea/ vomiting. However mainly spends time asking to have her librium and her methadone restarted. - Current Medication List Current Medications: Active Medications Acetaminophen (Tylenol -) 650 mg PO Q6H PRN PRN Reason: PAIN OR FEVER Last Admin: 09/10/18 09:15 Dose: 650 mg Amoxicillin/Clavulanate Potassium (Augmentin - 875mg Tablet) 1 tab PO BID@0800, 1730 [facility] Last Admin: 09/10/18 07:44 Dose: 1 tab Clonidine (Catapres -) 0.1 mg PO BID [facility] Last Admin: 09/10/18 09:03 Dose: 0.1 mg Cyclobenzaprine HCl (Flexeril -) 10 mg PO Q8H PRN PRN Reason: MUSCLE SPASMS Last Admin: 09/10/18 07:44 Dose: 10 mg Enoxaparin Sodium (Lovenox -) 40 mg SQ DAILY [facility] Last Admin: 09/10/18 09:03 Dose: 40 mg Ibuprofen (Motrin -) 400 mg PO Q6H PRN PRN Reason: FEVER Melatonin (Melatonin) 5 mg PO HS PRN PRN Reason: INSOMNIA Last Admin: 09/09/18 21:15 Dose: 5 mg Nicotine (Nicoderm Patch -) 21 mg TD DAILY [facility] Last Admin: 09/10/18 09:03 Dose: 21 mg Nicotine Polacrilex (Nicorette Gum -) 2 mg BUC Q2H PRN PRN Reason: NICOTINE REPLACEMENT RX Oseltamivir Phosphate (Tamiflu -) 75 mg PO BID [facility] Stop: 09/11/18 21:59 Last Admin: 09/10/18 09:03 Dose: 75 mg Promethazine HCl (Phenergan Liquid -) 25 mg PO Q6H PRN PRN Reason: NAUSEA AND/OR VOMITING Last Admin: 09/09/18 10:36 Dose: 25 mg Thiamine HCl (Vitamin B1 -) 100 mg PO HS [facility] Last Admin: 09/09/18 21:15 Dose: 100 mg - Objective Vital Signs: Vital Signs Temperature 39.4 C H 09/10/18 09:14 Pulse Rate 102 H 09/10/18 09:14 Respiratory Rate 18 09/10/18 09:14 Blood Pressure 113/59 L 09/10/18 09:14 O2 Sat by Pulse Oximetry (%) 99 09/10/18 09:00 Constitutional: Yes: Well Nourished, No Distress Cardiovascular: Yes: Regular Rate and Rhythm. No: Gallop, Murmur, Rub Respiratory: Yes: Regular, CTA Bilaterally. No: Rales, Wheezes Gastrointestinal: Yes: Normal Bowel Sounds, Soft. No: Distention, Tenderness Extremities: Yes: WNL Edema: No Labs: CBC, BMP 09/10/18 06:00 09/10/18 06:00 Problem List - Problems (1) Influenza A Code(s): J10.1 - FLU DUE TO OTH IDENT INFLUENZA VIRUS W OTH RESP MANIFEST (2) Alcohol dependence with uncomplicated withdrawal Code(s): F10.230 - ALCOHOL DEPENDENCE WITH WITHDRAWAL, UNCOMPLICATED (3) Strep pharyngitis Code(s): J02.0 - STREPTOCOCCAL PHARYNGITIS (4) Opioid dependence with withdrawal Code(s): F11.23 - OPIOID DEPENDENCE WITH WITHDRAWAL Assessment/Plan (1) Influenza A Assessment/Plan: -continue tamiflu dose 02/11 Code(s): J10.1 - FLU DUE TO OTH IDENT INFLUENZA VIRUS W OTH RESP MANIFEST (2) Alcohol dependence with uncomplicated withdrawal Assessment/Plan: -librium taper completed Code(s): F10.230 - ALCOHOL DEPENDENCE WITH WITHDRAWAL, UNCOMPLICATED (3) Strep pharyngitis Assessment/Plan: -continue augmentin day 4 Code(s): J02.0 - STREPTOCOCCAL PHARYNGITIS (4) Opioid dependence with withdrawal Assessment/Plan: -addiction medicine to continue methadone if needed Code(s): F11.23 - OPIOID DEPENDENCE WITH WITHDRAWAL (5) Nausea w/ vomiting -still with fevers -blood and urine cultures sent, pending results -CT A/P finished, awaiting read -will consult ID -may need IV antibiotics -also consider ECHO if blood cultures are positive or develops murmur on exam
[2018-09-10 11:56] LABS: ANISOCYTOSIS 2+; MACROCYTOSIS 0; PLATELET ESTIMATE NORMAL; TEAR DROP CELLS 1+
[2018-09-10] MEDS ORDERED: METHOCARBAMOL 750 MG TABLET PO PRN (13:30)
[2018-09-10] MEDS ORDERED: chlordiazePOXIDE HCL 10 MG CAPSULE PO PRN (13:31)
[2018-09-10] MEDS ORDERED: ACETAMINOPHEN 325 MG TABLET (FP) PO PRN (14:12)
[2018-09-10] MEDS ORDERED: IBUPROFEN 400 MG TABLET (FP) PO ONE (14:15)
[2018-09-10] MEDS: chlordiazePOXIDE 5 MG CAPSULE PO PRN ×2 (14:23→22:02)
--- NOTE | 2018-09-10 15:17 | CON.ID ---
Consult Consult Specialty:: infectious diseases Referred by:: Reason for Consultation:: ever,weakness,strep - History of Present Illness Chief Complaint: weakness,fever History of Present Illness: 42F w/ pmhx of polysubstance abuse (heroin, cocaine, tobacco, alcohol) was sent to the ED from [facility] after being found febrile with generalized body aches. Pt states she came to [facility] for alcoholic/heroine rehab last Wednesday, but started feeling sick around that time. She endorses fever, generalized body aches, malaise, and feeling sluggish. She also admits to a cough with productive green sputum and dypsnea on exertion. She denies taking anything for her symptoms since they started. Admits to some constipation, but denies garcia/d, n /v, abd pain, diarrhea, blood in urine/stool. She also denies hx of lung or heart disease, and denies recent sick contacts. In the ED she was found to be wandering in the halls trying to lie down in other patient's beds. Per ED, pt was going to be discharged back to [facility], however because she was +flu and needed droplet/isolation precautions, [facility] was unable to accept her at this time as they do not do isolation beds at the facility. patient continued to spike fever and was also found to have strp patient was started on oral abx and inspite of that patient continues to spike fever and also feel very weak. patient does not have any other symptoms also her wbc is slightly on the lower side - History Source History Provided By: Patient Limitations to Obtaining History: No Limitations - Past Medical History ...LMP: 09/02/18 - Alcohol/Substance Use Hx Alcohol Use: Yes - Smoking History Smoking history: Current some day smoker Have you smoked in the past 12 months: Yes Aproximately how many cigarettes per day: 20 Home Medications - Allergies Allergies/Adverse Reactions: Allergies Allergy/AdvReac Type Severity Reaction Status Date / Time No Known Allergies Allergy Verified 09/05/18 20:51 - Home Medications Home Medications: Ambulatory Orders Acetaminophen [Tylenol] 650 mg PO Q4H PRN 09/06/18 Calcium 250Mg/Vit-D 125 Units [Oscal 250 mg+D -] 1 combo PO BID 09/06/18 Chlordiazepoxide [Librium -] 10 mg PO Q6H 09/06/18 Chlordiazepoxide [Librium -] 15 mg PO Q6H 09/06/18 Cyclobenzaprine HCl [Flexeril -] 10 mg PO Q8H PRN 09/06/18 Guaifenesin [Robitussin] 200 mg PO Q6H PRN 09/06/18 Ibuprofen [Motrin -] 400 mg PO Q6H PRN 09/06/18 Loperamide HCl [Imodium -] 4 mg PO Q6H PRN 09/06/18 Magnesium Hydrox 2400MG/30Ml [Milk of Magnesia -] 30 ml PO PRN PRN 09/06/18 Methadone [Dolophine -] 5 mg PO DAILY 09/06/18 Methadone [Dolophine -] 10 mg PO Q6H 09/06/18 Methadone [Dolophine -] 15 mg PO DAILY 09/06/18 Nicotine Patch [Nicoderm Patch -] 1 patch TD DAILY 09/06/18 Nicotine Polacrilex [Nicorette] 2 mg BC Q2H PRN 09/06/18 Pnv No.95/Ferrous Fum/Folic AC [ Vitamin Tablet] 1 each PO DAILY RX: Melatonin 5 mg PO HS PRN 09/06/18 Sulfamethoxazole/Trimethoprim [Bactrim Ds -] 1 tab PO BID 09/06/18 Thiamine Mononitrate [Vitamin B-1] 100 mg PO HS 09/06/18 cloNIDine HCL [Catapres -] 0.1 mg PO BID 09/06/18 hydrOXYzine PAMOATE [Vistaril -] 25 mg PO Q4H PRN 09/06/18 Review of Systems - Review of Systems Constitutional: reports: Chills, Fever Eyes: reports: No Symptoms HENT: reports: No Symptoms Neck: reports: No Symptoms Cardiovascular: reports: No Symptoms Respiratory: reports: Cough Gastrointestinal: reports: No Symptoms Genitourinary: reports: No Symptoms Musculoskeletal: reports: No Symptoms Integumentary: reports: No Symptoms Neurological: reports: No Symptoms Endocrine: reports: No Symptoms Hematology/Lymphatic: reports: No Symptoms Psychiatric: reports: No Symptoms Physical Exam Vital Signs: Vital Signs Temperature 102.6 F H 09/10/18 13:40 Pulse Rate 87 09/10/18 13:40 Respiratory Rate 18 09/10/18 13:40 Blood Pressure 99/74 09/10/18 13:40 O2 Sat by Pulse Oximetry (%) 99 09/10/18 09:00 Constitutional: Yes: Well Nourished, Calm, Mild Distress Eyes: Yes: Conjunctiva Clear Neck: Yes: Supple, Trachea Midline Cardiovascular: Yes: Regular Rate and Rhythm Respiratory: Yes: Regular, Wheezes Gastrointestinal: Yes: Normal Bowel Sounds, Soft Musculoskeletal: Yes: WNL Extremities: Yes: WNL Integumentary: Yes: WNL Neurological: Yes: Alert, Oriented Psychiatric: Yes: Alert, Oriented Labs: CBC, BMP 09/10/18 06:00 09/10/18 06:00 Imaging - Results Chest X-ray: Report Reviewed, Image Reviewed Assessment/Plan Assessment/Plan (1) Influenza A Code(s): J10.1 - FLU DUE TO OTH IDENT INFLUENZA VIRUS W OTH RESP MANIFEST (2) Alcohol dependence with uncomplicated withdrawal Code(s): F10.230 - ALCOHOL DEPENDENCE WITH WITHDRAWAL, UNCOMPLICATED (3) Strep pharyngitis Code(s): J02.0 - STREPTOCOCCAL PHARYNGITIS (4) Opioid dependence with withdrawal Code(s): F11.23 - OPIOID DEPENDENCE WITH WITHDRAWAL (5) Nausea w/ vomiting 6 uti plan will stat on ceftriaxone and see how she responds if she does not respond will change to zosyn await for all the results rest as per the team
[2018-09-10] MEDS ORDERED: DEXTROSE 5%-WATER - 50 ML IVPB ONE (15:47)
[2018-09-10] MEDS ORDERED: cefTRIAXone SODIUM 1 GM VIAL ONE (15:47)
[2018-09-10] MEDS: CEFTRIAXONE 1 GM in DEXTROSE 5%-WATER - 50 ML IVPB SCH (16:02)
[2018-09-10] MEDS: THIAMINE HCL 100 MG TABLET (FP) PO SCH (21:56)
[2018-09-10] MEDS: MELATONIN 5 MG TABLETS PO PRN (21:56)
[2018-09-11] MEDS: ACETAMINOPHEN 325 MG TABLET (FP) PO PRN ×2 (01:36→14:25)
[2018-09-11 07:27] LABS: BASO % 0.5 % (0-2.0); EOS % 3.7 % (0-4.5); HEMATOCRIT 29.8 % (32.4-45.2); HEMOGLOBIN 10.1 GM/dL (10.7-15.3); LYMPH % 58.5 % (8-40); MCHC 33.9 g/dl (32.0-36.0); MEAN CELL VOLUME 94.4 fl (80-96); MEAN PLT VOLUME 8.5 fl (7.5-11.1); MONO % 6.8 % (3.8-10.2); NEUT % 30.5 % (42.8-82.8); PLATELET COUNT 294 K/MM3 (134-434); RBC 3.16 M/mm3 (3.60-5.2); RDW 15.6 % (11.6-15.6); WHITE BLOOD COUNT 4.7 K/mm3 (4.0-10.0)
[2018-09-11 07:30] LABS: ANION GAP 4 MMOL/L (8-16); BLOOD UREA NITROGEN 16 mg/dL (7-18); CALCIUM 8.9 mg/dL (8.5-10.1); CHLORIDE 112 mmol/L (98-107); CO2 24 mmol/L (21-32); CREATININE 0.8 mg/dL (0.55-1.3); GLUCOSE,RANDOM 80 mg/dL (74-106); MAGNESIUM 2.5 mg/dL (1.8-2.4); PHOSPHOROUS 5.2 mg/dL (2.5-4.9); POTASSIUM 4.2 mmol/L (3.5-5.1); SODIUM 140 mmol/L (136-145)
[2018-09-11] MEDS ORDERED: cefTRIAXone SODIUM 1 GM VIAL ONE (09:12)
[2018-09-11] MEDS ORDERED: DEXTROSE 5%-WATER - 50 ML IVPB ONE ×3 (09:12→18:19)
[2018-09-11] MEDS: chlordiazePOXIDE 5 MG CAPSULE PO PRN ×3 (09:53→22:25)
[2018-09-11] MEDS: OSELTAMIVIR PHOSPHATE 75 MG CAPSULE PO SCH (09:54)
[2018-09-11] MEDS: IBUPROFEN 400 MG TABLET (FP) PO PRN ×2 (09:54→22:24)
[2018-09-11] MEDS: NICOTINE 21 MG/24 HOURS TOPICAL PATCH TD SCH (09:55)
[2018-09-11] MEDS: ENOXAPARIN NA (PORCINE) 40 MG/0.4 ML DISP.SYRIN SQ SCH (09:55)
[2018-09-11] MEDS: CEFTRIAXONE 1 GM in DEXTROSE 5%-WATER - 50 ML IVPB SCH (09:55)
[2018-09-11] MEDS: METHOCARBAMOL 500 MG TABLET PO PRN (09:59)
--- NOTE | 2018-09-11 13:52 | PN ---
Progress Note, Physician History of Present Illness: patient continues to spike fever cx results noted says otherwise she is doing well - Current Medication List Current Medications: Active Medications Acetaminophen (Tylenol -) 650 mg PO Q4H PRN PRN Reason: FEVER Last Admin: 09/11/18 01:36 Dose: 650 mg Acetaminophen (Tylenol -) 650 mg PO Q4H PRN PRN Reason: PAIN SCALE 1-5 Chlordiazepoxide HCl (Librium -) 10 mg PO [id number] PRN PRN Reason: AGITATION Last Admin: 09/11/18 09:53 Dose: 10 mg Enoxaparin Sodium (Lovenox -) 40 mg SQ DAILY [facility] Last Admin: 09/11/18 09:55 Dose: 40 mg Piperacillin Sod/Tazobactam (Sod 3.375 gm/ Dextrose) 50 mls @ 100 mls/hr IVPB Q8H-IV [facility]A; Protocol Ibuprofen (Motrin -) 400 mg PO Q6H PRN PRN Reason: FEVER Last Admin: 09/11/18 09:54 Dose: 400 mg Melatonin (Melatonin) 5 mg PO HS PRN PRN Reason: INSOMNIA Last Admin: 09/10/18 21:56 Dose: 5 mg Methocarbamol (Robaxin -) 750 mg PO Q8H PRN PRN Reason: muscle pain Last Admin: 09/11/18 09:59 Dose: 750 mg Nicotine (Nicoderm Patch -) 21 mg TD DAILY [facility] Last Admin: 09/11/18 09:55 Dose: 21 mg Nicotine Polacrilex (Nicorette Gum -) 2 mg BUC Q2H PRN PRN Reason: NICOTINE REPLACEMENT RX Promethazine HCl (Phenergan Liquid -) 25 mg PO Q6H PRN PRN Reason: NAUSEA AND/OR VOMITING Last Admin: 09/09/18 10:36 Dose: 25 mg Thiamine HCl (Vitamin B1 -) 100 mg PO HS [facility] Last Admin: 09/10/18 21:56 Dose: 100 mg - Objective Vital Signs: Vital Signs Temperature 101.1 F H 09/11/18 10:00 Pulse Rate 82 09/11/18 10:00 Respiratory Rate 18 09/11/18 10:00 Blood Pressure 113/68 09/11/18 10:00 O2 Sat by Pulse Oximetry (%) 100 09/11/18 09:00 Constitutional: Yes: No Distress, Calm Cardiovascular: Yes: Regular Rate and Rhythm Respiratory: Yes: Regular, CTA Bilaterally Gastrointestinal: Yes: Normal Bowel Sounds, Soft Musculoskeletal: Yes: WNL Extremities: Yes: WNL Neurological: Yes: Alert, Oriented Labs: CBC, BMP 09/11/18 06:30 09/11/18 06:30 Assessment/Plan Assessment/Plan (1) Influenza A Code(s): J10.1 - FLU DUE TO OTH IDENT INFLUENZA VIRUS W OTH RESP MANIFEST (2) Alcohol dependence with uncomplicated withdrawal Code(s): F10.230 - ALCOHOL DEPENDENCE WITH WITHDRAWAL, UNCOMPLICATED (3) Strep pharyngitis Code(s): J02.0 - STREPTOCOCCAL PHARYNGITIS (4) Opioid dependence with withdrawal Code(s): F11.23 - OPIOID DEPENDENCE WITH WITHDRAWAL (5) Nausea w/ vomiting 6 uti plan will change abx to zosyn monitor fevers awaiting for ct scan results rest as per the team
[2018-09-11] MEDS ORDERED: PIPERACILLIN/TAZOBACTAM 3.375 GM VIAL IVPB ONE ×2 (14:14→18:19)
[2018-09-11] MEDS: PIPERACILLIN/TAZOB 3.375 GM 3.375 GM in DEXTROSE 5%-WATER - 50 ML IVPB SCH ×2 (14:27→18:35)
--- NOTE | 2018-09-11 15:38 | PN ---
Progress Note, Physician Chief Complaint: Ms Mccoy says she is feeling better. Says she is ready to go home. - Current Medication List Current Medications: Active Medications Acetaminophen (Tylenol -) 650 mg PO Q4H PRN PRN Reason: FEVER Last Admin: 09/11/18 14:25 Dose: 650 mg Acetaminophen (Tylenol -) 650 mg PO Q4H PRN PRN Reason: PAIN SCALE 1-5 Chlordiazepoxide HCl (Librium -) 10 mg PO [id number] PRN PRN Reason: AGITATION Last Admin: 09/11/18 09:53 Dose: 10 mg Enoxaparin Sodium (Lovenox -) 40 mg SQ DAILY [facility] Last Admin: 09/11/18 09:55 Dose: 40 mg Piperacillin Sod/Tazobactam (Sod 3.375 gm/ Dextrose) 50 mls @ 100 mls/hr IVPB Q8H-IV [facility]A; Protocol Last Admin: 09/11/18 14:27 Dose: 100 mls/hr Ibuprofen (Motrin -) 400 mg PO Q6H PRN PRN Reason: FEVER Last Admin: 09/11/18 09:54 Dose: 400 mg Melatonin (Melatonin) 5 mg PO HS PRN PRN Reason: INSOMNIA Last Admin: 09/10/18 21:56 Dose: 5 mg Methocarbamol (Robaxin -) 750 mg PO Q8H PRN PRN Reason: muscle pain Last Admin: 09/11/18 09:59 Dose: 750 mg Nicotine (Nicoderm Patch -) 21 mg TD DAILY [facility] Last Admin: 09/11/18 09:55 Dose: 21 mg Nicotine Polacrilex (Nicorette Gum -) 2 mg BUC Q2H PRN PRN Reason: NICOTINE REPLACEMENT RX Promethazine HCl (Phenergan Liquid -) 25 mg PO Q6H PRN PRN Reason: NAUSEA AND/OR VOMITING Last Admin: 09/09/18 10:36 Dose: 25 mg Thiamine HCl (Vitamin B1 -) 100 mg PO HS [facility] Last Admin: 09/10/18 21:56 Dose: 100 mg - Objective Vital Signs: Vital Signs Temperature 38.2 C H 09/11/18 14:08 Pulse Rate 87 09/11/18 14:08 Respiratory Rate 20 09/11/18 14:08 Blood Pressure 133/69 09/11/18 14:08 O2 Sat by Pulse Oximetry (%) 100 03/10/19 09:00 Constitutional: Yes: Well Nourished, No Distress, Calm Cardiovascular: Yes: Regular Rate and Rhythm. No: Gallop, Murmur, Rub Respiratory: Yes: Regular, CTA Bilaterally. No: Rales, Rhonchi, Wheezes Gastrointestinal: Yes: Normal Bowel Sounds, Soft. No: Distention, Tenderness Extremities: Yes: WNL Edema: No Labs: CBC, BMP 09/11/18 06:30 09/11/18 06:30 Problem List - Problems (1) Influenza A Code(s): J10.1 - FLU DUE TO OTH IDENT INFLUENZA VIRUS W OTH RESP MANIFEST (2) Alcohol dependence with uncomplicated withdrawal Code(s): F10.230 - ALCOHOL DEPENDENCE WITH WITHDRAWAL, UNCOMPLICATED (3) Strep pharyngitis Code(s): J02.0 - STREPTOCOCCAL PHARYNGITIS (4) Opioid dependence with withdrawal Code(s): F11.23 - OPIOID DEPENDENCE WITH WITHDRAWAL Assessment/Plan (1) Influenza A Assessment/Plan: -finished full course of tamiflu -can stop droplet precautions Code(s): J10.1 - FLU DUE TO OTH IDENT INFLUENZA VIRUS W OTH RESP MANIFEST (2) Alcohol dependence with uncomplicated withdrawal Assessment/Plan: -restarted on librium per Dr Butler's orders Code(s): F10.230 - ALCOHOL DEPENDENCE WITH WITHDRAWAL, UNCOMPLICATED (3) Strep pharyngitis Assessment/Plan: -appreciate ID assistance -changed to zosyn Code(s): J02.0 - STREPTOCOCCAL PHARYNGITIS (4) Opioid dependence with withdrawal Assessment/Plan: -addiction medicine to continue methadone if needed Code(s): F11.23 - OPIOID DEPENDENCE WITH WITHDRAWAL (5) Nausea w/ vomiting -now resolved (6) UTI -cultures growing enterococcus -case d/w Dr Mendez -now on zosyn -monitor for fever resolution
[2018-09-11] MEDS: MELATONIN 5 MG TABLETS PO PRN (22:24)
[2018-09-11] MEDS: THIAMINE HCL 100 MG TABLET (FP) PO SCH (22:25)
[2018-09-12] MEDS ORDERED: PIPERACILLIN/TAZOBACTAM 3.375 GM VIAL IVPB ONE ×3 (02:43→17:34)
[2018-09-12] MEDS ORDERED: DEXTROSE 5%-WATER - 50 ML IVPB ONE ×3 (02:44→17:35)
[2018-09-12] MEDS: PIPERACILLIN/TAZOB 3.375 GM 3.375 GM in DEXTROSE 5%-WATER - 50 ML IVPB SCH ×3 (02:49→18:17)
[2018-09-12] MEDS ORDERED: PT OWN MED DRAWER 7, Y5N ONE (06:09)
[2018-09-12] MEDS: chlordiazePOXIDE 5 MG CAPSULE PO PRN ×4 (06:17→23:36)
[2018-09-12] MEDS: ACETAMINOPHEN 325 MG TABLET (FP) PO PRN ×2 (06:17→10:44)
[2018-09-12 07:55] LABS: BASO % 0.4 % (0-2.0); EOS % 2.6 % (0-4.5); HEMATOCRIT 30.2 % (32.4-45.2); HEMOGLOBIN 10.3 GM/dL (10.7-15.3); LYMPH % 42.3 % (8-40); MCHC 34.1 g/dl (32.0-36.0); MEAN CELL VOLUME 93.7 fl (80-96); MEAN PLT VOLUME 8.2 fl (7.5-11.1); NEUT % 48.7 % (42.8-82.8); PLATELET COUNT 315 K/MM3 (134-434); RBC 3.22 M/mm3 (3.60-5.2); RDW 15.9 % (11.6-15.6); WHITE BLOOD COUNT 5.5 K/mm3 (4.0-10.0)
[2018-09-12 09:32] LABS: ANION GAP 6 MMOL/L (8-16); BLOOD UREA NITROGEN 14 mg/dL (7-18); CALCIUM 8.7 mg/dL (8.5-10.1); CHLORIDE 110 mmol/L (98-107); CO2 25 mmol/L (21-32); CREATININE 0.8 mg/dL (0.55-1.3); GLUCOSE,RANDOM 68 mg/dL (74-106); MAGNESIUM 2.4 mg/dL (1.8-2.4); PHOSPHOROUS 4.8 mg/dL (2.5-4.9); POTASSIUM 4.2 mmol/L (3.5-5.1); SODIUM 141 mmol/L (136-145)
[2018-09-12] MEDS: NICOTINE 21 MG/24 HOURS TOPICAL PATCH TD SCH (10:20)
[2018-09-12] MEDS: ENOXAPARIN NA (PORCINE) 40 MG/0.4 ML DISP.SYRIN SQ SCH (10:20)
--- NOTE | 2018-09-12 10:29 | PN ---
Progress Note, Physician History of Present Illness: continued to spike fevers upto last night has been afebrile since this morning says she is feeling well had a better night patients urine now vre--patient count low and does not hve any symptoms - Current Medication List Current Medications: Active Medications Acetaminophen (Tylenol -) 650 mg PO Q4H PRN PRN Reason: FEVER Last Admin: 09/12/18 06:17 Dose: 650 mg Acetaminophen (Tylenol -) 650 mg PO Q4H PRN PRN Reason: PAIN SCALE 1-5 Chlordiazepoxide HCl (Librium -) 10 mg PO [id number] PRN PRN Reason: AGITATION Last Admin: 09/12/18 06:17 Dose: 10 mg Enoxaparin Sodium (Lovenox -) 40 mg SQ DAILY MIHAELA Last Admin: 09/11/18 09:55 Dose: 40 mg Piperacillin Sod/Tazobactam (Sod 3.375 gm/ Dextrose) 50 mls @ 100 mls/hr IVPB Q8H-IV MIHAELA; Protocol Last Admin: 09/12/18 02:49 Dose: 100 mls/hr Ibuprofen (Motrin -) 400 mg PO Q6H PRN PRN Reason: FEVER Last Admin: 09/11/18 22:24 Dose: 400 mg Melatonin (Melatonin) 5 mg PO HS PRN PRN Reason: INSOMNIA Last Admin: 09/11/18 22:24 Dose: 5 mg Methocarbamol (Robaxin -) 750 mg PO Q8H PRN PRN Reason: muscle pain Last Admin: 09/11/18 09:59 Dose: 750 mg Nicotine (Nicoderm Patch -) 21 mg TD DAILY MIHAELA Last Admin: 09/11/18 09:55 Dose: 21 mg Nicotine Polacrilex (Nicorette Gum -) 2 mg BUC Q2H PRN PRN Reason: NICOTINE REPLACEMENT RX Promethazine HCl (Phenergan Liquid -) 25 mg PO Q6H PRN PRN Reason: NAUSEA AND/OR VOMITING Last Admin: 09/09/18 10:36 Dose: 25 mg Thiamine HCl (Vitamin B1 -) 100 mg PO HS MIHAELA Last Admin: 09/11/18 22:25 Dose: 100 mg - Objective Vital Signs: Vital Signs Temperature 99.1 F 09/12/18 06:26 Pulse Rate 81 09/12/18 06:26 Respiratory Rate 19 09/12/18 06:26 Blood Pressure 110/74 09/12/18 06:26 O2 Sat by Pulse Oximetry (%) 99 09/11/18 21:00 Constitutional: Yes: Calm, Mild Distress Cardiovascular: Yes: Regular Rate and Rhythm Respiratory: Yes: Regular, CTA Bilaterally Gastrointestinal: Yes: Normal Bowel Sounds, Soft Musculoskeletal: Yes: WNL Extremities: Yes: WNL Neurological: Yes: Alert, Oriented Psychiatric: Yes: Alert, Oriented Labs: CBC, BMP 09/12/18 07:00 09/12/18 07:30 Assessment/Plan Assessment/Plan (1) Influenza A Code(s): J10.1 - FLU DUE TO OTH IDENT INFLUENZA VIRUS W OTH RESP MANIFEST (2) Alcohol dependence with uncomplicated withdrawal Code(s): F10.230 - ALCOHOL DEPENDENCE WITH WITHDRAWAL, UNCOMPLICATED (3) Strep pharyngitis Code(s): J02.0 - STREPTOCOCCAL PHARYNGITIS (4) Opioid dependence with withdrawal Code(s): F11.23 - OPIOID DEPENDENCE WITH WITHDRAWAL (5) Nausea w/ vomiting 6 uti plan continue zosyn monitor for fevers urine cx now vre will hold of starting any treatment for that as she is asymptomatic and might be colonized if she continues to spike then might have to treat her rest as per the team
--- NOTE | 2018-09-12 11:53 | PN ---
Progress Note, Physician Chief Complaint: Ms Mccoy is without complaint today and asking if she can go home. Denies cp , sob, n/v. - Current Medication List Current Medications: Active Medications Acetaminophen (Tylenol -) 650 mg PO Q4H PRN PRN Reason: FEVER Last Admin: 09/12/18 10:44 Dose: 650 mg Acetaminophen (Tylenol -) 650 mg PO Q4H PRN PRN Reason: PAIN SCALE 1-5 Chlordiazepoxide HCl (Librium -) 10 mg PO [id number] PRN PRN Reason: AGITATION Last Admin: 09/12/18 06:17 Dose: 10 mg Enoxaparin Sodium (Lovenox -) 40 mg SQ DAILY MIHAELA Last Admin: 09/12/18 10:20 Dose: 40 mg Piperacillin Sod/Tazobactam (Sod 3.375 gm/ Dextrose) 50 mls @ 100 mls/hr IVPB Q8H-IV MIHAELA; Protocol Last Admin: 09/12/18 10:20 Dose: 100 mls/hr Ibuprofen (Motrin -) 400 mg PO Q6H PRN PRN Reason: FEVER Last Admin: 09/11/18 22:24 Dose: 400 mg Melatonin (Melatonin) 5 mg PO HS PRN PRN Reason: INSOMNIA Last Admin: 09/11/18 22:24 Dose: 5 mg Methocarbamol (Robaxin -) 750 mg PO Q8H PRN PRN Reason: muscle pain Last Admin: 09/11/18 09:59 Dose: 750 mg Nicotine (Nicoderm Patch -) 21 mg TD DAILY MIHAELA Last Admin: 09/12/18 10:20 Dose: 21 mg Nicotine Polacrilex (Nicorette Gum -) 2 mg BUC Q2H PRN PRN Reason: NICOTINE REPLACEMENT RX Promethazine HCl (Phenergan Liquid -) 25 mg PO Q6H PRN PRN Reason: NAUSEA AND/OR VOMITING Last Admin: 09/09/18 10:36 Dose: 25 mg Thiamine HCl (Vitamin B1 -) 100 mg PO HS MIHAELA Last Admin: 09/11/18 22:25 Dose: 100 mg - Objective Vital Signs: Vital Signs Temperature 36.8 C 09/12/18 10:00 Pulse Rate 85 09/12/18 10:00 Respiratory Rate 19 09/12/18 10:00 Blood Pressure 95/75 09/12/18 10:00 O2 Sat by Pulse Oximetry (%) 100 09/12/18 09:00 Constitutional: Yes: Well Nourished, No Distress, Calm Cardiovascular: Yes: Regular Rate and Rhythm. No: Gallop, Murmur, Rub Respiratory: Yes: Regular, CTA Bilaterally. No: Rales, Rhonchi, Wheezes Gastrointestinal: Yes: Normal Bowel Sounds, Soft. No: Distention, Tenderness Extremities: Yes: WNL Edema: No Labs: CBC, BMP 09/12/18 07:00 09/12/18 07:30 Problem List - Problems (1) Influenza A Code(s): J10.1 - FLU DUE TO OTH IDENT INFLUENZA VIRUS W OTH RESP MANIFEST (2) Alcohol dependence with uncomplicated withdrawal Code(s): F10.230 - ALCOHOL DEPENDENCE WITH WITHDRAWAL, UNCOMPLICATED (3) Strep pharyngitis Code(s): J02.0 - STREPTOCOCCAL PHARYNGITIS (4) Opioid dependence with withdrawal Code(s): F11.23 - OPIOID DEPENDENCE WITH WITHDRAWAL Assessment/Plan (1) Influenza A Assessment/Plan: -finished full course of tamiflu -can stop droplet precautions Code(s): J10.1 - FLU DUE TO OTH IDENT INFLUENZA VIRUS W OTH RESP MANIFEST (2) Alcohol dependence with uncomplicated withdrawal Assessment/Plan: -continue librium taper Code(s): F10.230 - ALCOHOL DEPENDENCE WITH WITHDRAWAL, UNCOMPLICATED (3) Strep pharyngitis Assessment/Plan: -case d/w ID -continue zosyn -will need to be afebrile for 48 hours Code(s): J02.0 - STREPTOCOCCAL PHARYNGITIS (4) Opioid dependence with withdrawal Assessment/Plan: -addiction medicine to continue methadone if needed Code(s): F11.23 - OPIOID DEPENDENCE WITH WITHDRAWAL (5) Nausea w/ vomiting -now resolved -suspect was from ruptured ovarian cyst and was also having abdominal pain with it (6) UTI -as above Dispo -plan for discharge on Wednesday if remains afebrile
--- NOTE | 2018-09-12 19:03 | PN ---
Physical Exam: SUBJECTIVE: Patient seen and examined low grade fever; on IV antibiotics; OBJECTIVE: Vital Signs Period Temp Pulse Resp BP Sys/Cobian Pulse Ox Last 24 Hr 98.3 F-100.7 F 81-103 17-20 95-128/65-75 99-100 GENERAL: The patient is awake, alert, and fully oriented, in no acute distress. LUNGS: decreased breath sounds HEART: Regular rate and rhythm, S1, S2 without murmur, rub or gallop. ABDOMEN: Soft, nontender, nondistended, normoactive bowel sounds, no guarding, no rebound, no hepatosplenomegaly, no masses. EXTREMITIES: 2+ pulses, warm, well-perfused, no edema. NEUROLOGICAL: Cranial nerves II through XII grossly intact. Normal speech, gait not Laboratory Results - last 24 hr 09/12/18 09/12/18 07:00 07:30 WBC 5.5 RBC 3.22 L Hgb 10.3 L Hct 30.2 L MCV 93.7 MCH 32.0 MCHC 34.1 RDW 15.9 H Plt Count 315 MPV 8.2 Absolute Neuts (auto) 2.7 Neutrophils % 48.7 D Lymphocytes % 42.3 H D Monocytes % 6.0 Eosinophils % 2.6 Basophils % 0.4 Nucleated RBC % 0 Sodium 141 Potassium 4.2 Chloride 110 H Carbon Dioxide 25 Anion Gap 6 L BUN 14 Creatinine 0.8 Creat Clearance w eGFR > 60 Random Glucose 68 L Calcium 8.7 Phosphorus 4.8 Magnesium 2.4 Active Medications Generic Name Dose Route Start Last Admin Trade Name Freq PRN Reason Stop Dose Admin Acetaminophen 650 mg 09/10/18 14:12 09/12/18 10:44 Tylenol - PO 650 mg Q4H PRN Administration FEVER Acetaminophen 650 mg 09/10/18 14:12 Tylenol - PO Q4H PRN PAIN SCALE 1-5 Chlordiazepoxide HCl 10 mg 09/10/18 14:17 09/12/18 18:16 Librium - PO 10 mg [id number] PRN Administration AGITATION Enoxaparin Sodium 40 mg 09/06/18 10:00 09/12/18 10:20 Lovenox - SQ 40 mg DAILY MIHAELA Administration Piperacillin Sod/Tazobactam 50 mls @ 100 mls/hr 09/11/18 14:00 03/11/19 18:17 Sod 3.375 gm/ Dextrose IVPB 100 mls/hr Q8H-IV MIHAELA Administration Protocol Ibuprofen 400 mg 09/10/18 11:06 09/11/18 22:24 Motrin - PO 400 mg Q6H PRN Administration FEVER Melatonin 5 mg 09/06/18 03:00 09/11/18 22:24 Melatonin PO 5 mg HS PRN Administration INSOMNIA Methocarbamol 750 mg 09/10/18 15:18 09/11/18 09:59 Robaxin - PO 750 mg Q8H PRN Administration muscle pain Nicotine 21 mg 09/06/18 10:00 09/12/18 10:20 Nicoderm Patch - TD 21 mg DAILY MIHAELA Administration Nicotine Polacrilex 2 mg 09/06/18 17:26 Nicorette Gum - BUC Q2H PRN NICOTINE REPLACEMENT RX Promethazine HCl 25 mg 09/08/18 11:04 09/09/18 10:36 Phenergan Liquid - PO 25 mg Q6H PRN Administration NAUSEA AND/OR VOMITING Thiamine HCl 100 mg 09/06/18 22:00 09/11/18 22:25 Vitamin B1 - PO 100 mg HS MIHAELA Administration ASSESSMENT/PLAN: This is a 42 year old female with alcohol, opiod, tobacco dependance, sent from [facility], Influenza +, strep +; VRE in urine, possible contaminant. #Alcohol dependance withdrawl; -librium protocol -no tremor., hallucinations #strep pharyngiits; on IV zosyn #infulenza A #VRE in urine; may be contaminent; monitor for fever; repeat ua; will adjust antibiotics accordingly #rbc in urine; will repeat ua; may be from recent period dvt ppl lovenox Visit type - Emergency Visit Emergency Visit: Yes ED Registration Date: 09/05/18 Care time: The patient presented to the Emergency Department on the above date and was hospitalized for further evaluation of their emergent condition. - New Patient This patient is new to me today: Yes Date on this admission: 09/12/18 - Critical Care Critical Care patient: No
[2018-09-12] MEDS: THIAMINE HCL 100 MG TABLET (FP) PO SCH (21:10)
[2018-09-13] MEDS ORDERED: PIPERACILLIN/TAZOBACTAM 3.375 GM VIAL IVPB ONE ×3 (02:14→17:04)
[2018-09-13] MEDS ORDERED: DEXTROSE 5%-WATER - 50 ML IVPB ONE ×3 (02:14→17:05)
[2018-09-13] MEDS: PIPERACILLIN/TAZOB 3.375 GM 3.375 GM in DEXTROSE 5%-WATER - 50 ML IVPB SCH ×3 (02:20→18:03)
[2018-09-13 02:23] LABS: URINE APPEARANCE SLCLOUDY; URINE BILIRUBIN NEGATIVE (<2.0 mg/dL); URINE COLOR LTYELLOW; URINE GLUCOSE (UA) NEGATIVE (NEGATIVE); URINE KETONE NEGATIVE (NEGATIVE); URINE LEUK ESTERASE NEGATIVE (NEGATIVE); URINE NITRITE NEGATIVE (NEGATIVE); URINE PROTEIN NEGATIVE (NEGATIVE); URINE UROBILINOGEN NEGATIVE mg/dL (0.2-1.0)
[2018-09-13 08:22] LABS: BASO % 0.5 % (0-2.0); EOS % 2.3 % (0-4.5); HEMATOCRIT 31.2 % (32.4-45.2); HEMOGLOBIN 10.5 GM/dL (10.7-15.3); LYMPH % 46.3 % (8-40); MCH 31.4 pg (25.7-33.7); MCHC 33.8 g/dl (32.0-36.0); MEAN CELL VOLUME 93.1 fl (80-96); MONO % 5.9 % (3.8-10.2); PLATELET COUNT 357 K/MM3 (134-434); RBC 3.35 M/mm3 (3.60-5.2); RDW 15.8 % (11.6-15.6); WHITE BLOOD COUNT 4.7 K/mm3 (4.0-10.0)
[2018-09-13 08:58] LABS: ANION GAP 7 MMOL/L (8-16); BLOOD UREA NITROGEN 15 mg/dL (7-18); CALCIUM 8.9 mg/dL (8.5-10.1); CHLORIDE 111 mmol/L (98-107); CO2 25 mmol/L (21-32); CREATININE 0.8 mg/dL (0.55-1.3); GLUCOSE,RANDOM 73 mg/dL (74-106); MAGNESIUM 2.6 mg/dL (1.8-2.4); PHOSPHOROUS 5.2 mg/dL (2.5-4.9); POTASSIUM 4.5 mmol/L (3.5-5.1); SODIUM 142 mmol/L (136-145)
[2018-09-13] MEDS ORDERED: PT OWN MED DRAWER 7, Y5N ONE ×2 (09:48→21:34)
[2018-09-13] MEDS: ENOXAPARIN NA (PORCINE) 40 MG/0.4 ML DISP.SYRIN SQ SCH (10:04)
[2018-09-13] MEDS: NICOTINE 21 MG/24 HOURS TOPICAL PATCH TD SCH (10:05)
[2018-09-13] MEDS: IBUPROFEN 400 MG TABLET (FP) PO PRN (10:39)
[2018-09-13] MEDS: METHOCARBAMOL 500 MG TABLET PO PRN ×2 (10:40→22:08)
--- NOTE | 2018-09-13 12:20 | CON.PSY ---
Psychiatry Consult Chief Complaint: 42 year old female admitted from [facility]. History of alcohol abuse and dependence. seen for psych eval for anxiety. Symptoms: reports: Irritability, Anxiety - Previous Psychiatric Treatment Outpatient: None Inpatient: None - Previous Substance Abuse Treatment Outpatient: Less than 6 mos ago Inpatient: One prior admission - Reason for Previous Treatment Reason for Previous Treatment: Anxiety or Panic Disorder - Current Medications Current Medications: Active Medications Acetaminophen (Tylenol -) 650 mg PO Q4H PRN PRN Reason: FEVER Last Admin: 09/12/18 10:44 Dose: 650 mg Acetaminophen (Tylenol -) 650 mg PO Q4H PRN PRN Reason: PAIN SCALE 1-5 Chlordiazepoxide HCl (Librium -) 5 mg PO [id number] PRN PRN Reason: AGITATION Enoxaparin Sodium (Lovenox -) 40 mg SQ DAILY [facility] Last Admin: 09/13/18 10:04 Dose: Not Given Piperacillin Sod/Tazobactam (Sod 3.375 gm/ Dextrose) 50 mls @ 100 mls/hr IVPB Q8H-IV MIHAELA; Protocol Last Admin: 09/13/18 09:52 Dose: 100 mls/hr Ibuprofen (Motrin -) 400 mg PO Q6H PRN PRN Reason: FEVER Last Admin: 09/13/18 10:39 Dose: 400 mg Melatonin (Melatonin) 5 mg PO HS PRN PRN Reason: INSOMNIA Last Admin: 09/11/18 22:24 Dose: 5 mg Methocarbamol (Robaxin -) 750 mg PO Q8H PRN PRN Reason: muscle pain Last Admin: 09/13/18 10:40 Dose: 750 mg Nicotine (Nicoderm Patch -) 21 mg TD DAILY MIHAELA Last Admin: 09/13/18 10:05 Dose: Not Given Nicotine Polacrilex (Nicorette Gum -) 2 mg BUC Q2H PRN PRN Reason: NICOTINE REPLACEMENT RX Promethazine HCl (Phenergan Liquid -) 25 mg PO Q6H PRN PRN Reason: NAUSEA AND/OR VOMITING Last Admin: 09/09/18 10:36 Dose: 25 mg Thiamine HCl (Vitamin B1 -) 100 mg PO HS MIHAELA Last Admin: 09/12/18 21:10 Dose: 100 mg - Allergies Allergies: Allergies Allergy/AdvReac Type Severity Reaction Status Date / Time No Known Allergies Allergy Verified 09/05/18 20:51 - Current Living Status Usual Living Arrangement: Alone - Current Mental Status Evaluation Appearance: Well Groomed Attitude: Cooperative - Affect Affect: Full Range Appropriateness: Appropriate to Content - Mood Mood: Irritable - Speech/Language Expressive: Coherent - Psychomotor Activity Psychomotor Activity: Normal - Thought Process Thought Process: Intact - Thought Content Hallucinations: Absent Delusions: Absent - Self Perception Self Perception: No Impairment - Cognition Attention: Alert Orientation: Time Memory, Immediate Recall: Intact Memory, Short Term: 3/3 Memory, Remote with Promptin/3 - Concentration Serial Sevens Intact: Yes Simple Calculations Intact: Yes - Abstraction Proverb Interpretation: Intact Judgement: Minimally Impaired - Insight Insight: Intact - Impulse Control Impulse Control: Minimally Impaired - Suicidal Ideation Suicidal Ideation: No - Homicidal Ideation Homicidal Ideation: No Assessment/Plan 1)No Psych meds. 2) Patient said I Don't need you.
--- NOTE | 2018-09-13 13:09 | PN ---
Progress Note, Physician History of Present Illness: patient stable has been afebrile now for 20 hours feels better - Current Medication List Current Medications: Active Medications Acetaminophen (Tylenol -) 650 mg PO Q4H PRN PRN Reason: FEVER Last Admin: 09/12/18 10:44 Dose: 650 mg Acetaminophen (Tylenol -) 650 mg PO Q4H PRN PRN Reason: PAIN SCALE 1-5 Chlordiazepoxide HCl (Librium -) 5 mg PO [id number] PRN PRN Reason: AGITATION Enoxaparin Sodium (Lovenox -) 40 mg SQ DAILY MIHAELA Last Admin: 09/13/18 10:04 Dose: Not Given Piperacillin Sod/Tazobactam (Sod 3.375 gm/ Dextrose) 50 mls @ 100 mls/hr IVPB Q8H-IV MIHAELA; Protocol Last Admin: 09/13/18 09:52 Dose: 100 mls/hr Ibuprofen (Motrin -) 400 mg PO Q6H PRN PRN Reason: FEVER Last Admin: 09/13/18 10:39 Dose: 400 mg Melatonin (Melatonin) 5 mg PO HS PRN PRN Reason: INSOMNIA Last Admin: 09/11/18 22:24 Dose: 5 mg Methocarbamol (Robaxin -) 750 mg PO Q8H PRN PRN Reason: muscle pain Last Admin: 09/13/18 10:40 Dose: 750 mg Nicotine (Nicoderm Patch -) 21 mg TD DAILY MIHAELA Last Admin: 09/13/18 10:05 Dose: Not Given Nicotine Polacrilex (Nicorette Gum -) 2 mg BUC Q2H PRN PRN Reason: NICOTINE REPLACEMENT RX Promethazine HCl (Phenergan Liquid -) 25 mg PO Q6H PRN PRN Reason: NAUSEA AND/OR VOMITING Last Admin: 09/09/18 10:36 Dose: 25 mg Thiamine HCl (Vitamin B1 -) 100 mg PO HS MIHAELA Last Admin: 09/12/18 21:10 Dose: 100 mg - Objective Vital Signs: Vital Signs Temperature 99.0 F 09/13/18 10:00 Pulse Rate 98 H 09/13/18 10:00 Respiratory Rate 20 09/13/18 10:00 Blood Pressure 106/69 09/13/18 10:00 O2 Sat by Pulse Oximetry (%) 99 09/13/18 09:00 Constitutional: Yes: No Distress, Calm Cardiovascular: Yes: Regular Rate and Rhythm Respiratory: Yes: Regular, CTA Bilaterally Gastrointestinal: Yes: Normal Bowel Sounds, Soft Musculoskeletal: Yes: WNL Extremities: Yes: WNL Neurological: Yes: Alert, Oriented Psychiatric: Yes: Alert, Oriented Labs: CBC, BMP 09/13/18 08:00 09/13/18 08:00 Assessment/Plan Assessment/Plan (1) Influenza A Code(s): J10.1 - FLU DUE TO OTH IDENT INFLUENZA VIRUS W OTH RESP MANIFEST (2) Alcohol dependence with uncomplicated withdrawal Code(s): F10.230 - ALCOHOL DEPENDENCE WITH WITHDRAWAL, UNCOMPLICATED (3) Strep pharyngitis Code(s): J02.0 - STREPTOCOCCAL PHARYNGITIS (4) Opioid dependence with withdrawal Code(s): F11.23 - OPIOID DEPENDENCE WITH WITHDRAWAL (5) Nausea w/ vomiting 6 uti plan continue zosyn if patient remains afebrile tomorrow will change to oral abx rest as per the team
--- NOTE | 2018-09-13 15:47 | PN ---
Teaching Attending Note Name of Resident: Stacia Enciso ATTENDING PHYSICIAN STATEMENT I saw and evaluated the patient. I reviewed the resident's note and discussed the case with the resident. I agree with the resident's findings and plan as documented. SUBJECTIVE: Ms Mccoy is without complaint. Denies cp, sob, n/v. OBJECTIVE: Last Vital Signs Temp Pulse Resp BP Pulse Ox 36.8 C 94 H 20 110/68 99 09/13/18 14:37 09/13/18 14:37 09/13/18 14:37 09/13/18 14:37 09/13/18 09:00 Gen: nad Pulm: ctab w/o w/r/r CV: rrr w/o m/r/g Abd: +bs, s/nt/nd Ext: no c/c/e ASSESSMENT AND PLAN: (1) Influenza A Assessment/Plan: -finished full course of tamiflu Code(s): J10.1 - FLU DUE TO OTH IDENT INFLUENZA VIRUS W OTH RESP MANIFEST (2) Alcohol dependence with uncomplicated withdrawal Assessment/Plan -finished librium taper Code(s): F10.230 - ALCOHOL DEPENDENCE WITH WITHDRAWAL, UNCOMPLICATED (3) Strep pharyngitis Assessment/Plan: -case d/w ID -continue zosyn -can discharge tomorrow if remains afebrile Code(s): J02.0 - STREPTOCOCCAL PHARYNGITIS (4) Opioid dependence with withdrawal Assessment/Plan: -s/p methadone taper Code(s): F11.23 - OPIOID DEPENDENCE WITH WITHDRAWAL (5) Nausea w/ vomiting -now resolved -suspect was from ruptured ovarian cyst and was also having abdominal pain with it (6) UTI -as above Dispo -plan for discharge tomorrow Problem List - Problems (1) Influenza A Code(s): J10.1 - FLU DUE TO OTH IDENT INFLUENZA VIRUS W OTH RESP MANIFEST (2) Alcohol dependence with uncomplicated withdrawal Code(s): F10.230 - ALCOHOL DEPENDENCE WITH WITHDRAWAL, UNCOMPLICATED (3) Strep pharyngitis Code(s): J02.0 - STREPTOCOCCAL PHARYNGITIS (4) Opioid dependence with withdrawal Code(s): F11.23 - OPIOID DEPENDENCE WITH WITHDRAWAL
[2018-09-13] MEDS: chlordiazePOXIDE 5 MG CAPSULE PO PRN (18:03)
--- NOTE | 2018-09-13 18:03 | PN ---
Physical Exam: SUBJECTIVE: Patient seen and examined; c/o anxiety; wants to go home OBJECTIVE: Vital Signs Period Temp Pulse Resp BP Sys/Cobian Pulse Ox Last 24 Hr 98.3 F-99.0 F 71-98 20-20 106-129/60-69 99-100 GENERAL: The patient is awake, alert, and fully oriented, in no acute distress. LUNGS: Breath sounds equal, clear to auscultation bilaterally, no wheezes, no crackles, no accessory muscle use. HEART: Regular rate and rhythm, S1, S2 without murmur, rub or gallop. ABDOMEN: Soft, nontender, nondistended, normoactive bowel sounds, no guarding, no rebound, no hepatosplenomegaly, no masses. EXTREMITIES: 2+ pulses, warm, well-perfused, no edema. NEUROLOGICAL: Cranial nerves II through XII grossly intact. Normal speech, gait not observed. PSYCH:anxious SKIN: Warm, dry, normal turgor, no rashes or lesions noted Laboratory Results - last 24 hr 09/12/18 09/13/18 09/13/18 23:30 08:00 08:00 WBC 4.7 RBC 3.35 L Hgb 10.5 L Hct 31.2 L MCV 93.1 MCH 31.4 MCHC 33.8 RDW 15.8 H Plt Count 357 MPV 8.0 Absolute Neuts (auto) 2.1 Neutrophils % 45.0 Lymphocytes % 46.3 H Monocytes % 5.9 Eosinophils % 2.3 Basophils % 0.5 Nucleated RBC % 0 Sodium 142 Potassium 4.5 Chloride 111 H Carbon Dioxide 25 Anion Gap 7 L BUN 15 Creatinine 0.8 Creat Clearance w eGFR > 60 Random Glucose 73 L Calcium 8.9 Phosphorus 5.2 H Magnesium 2.6 H Urine Color Ltyellow Urine Appearance Slcloudy Urine pH 7.0 Ur Specific [place] 1.014 Urine Protein Negative Urine Glucose (UA) Negative Urine Ketones Negative Urine Blood Negative Urine Nitrite Negative Urine Bilirubin Negative Urine Urobilinogen Negative Ur Leukocyte Esterase Negative Active Medications Generic Name Dose Route Start Last Admin Trade Name Freq PRN Reason Stop Dose Admin Acetaminophen 650 mg 09/10/18 14:12 09/12/18 10:44 Tylenol - PO 650 mg Q4H PRN Administration FEVER Acetaminophen 650 mg 09/10/18 14:12 Tylenol - PO Q4H PRN PAIN SCALE 1-5 Chlordiazepoxide HCl 5 mg 09/13/18 08:54 Librium - PO Q6H PRN AGITATION Enoxaparin Sodium 40 mg 09/06/18 10:00 09/13/18 10:04 Lovenox - SQ Not Given DAILY MIHAELA Piperacillin Sod/Tazobactam 50 mls @ 100 mls/hr 09/11/18 14:00 09/13/18 09:52 Sod 3.375 gm/ Dextrose IVPB 100 mls/hr Q8H-IV MIHAELA Administration Protocol Ibuprofen 400 mg 09/10/18 11:06 09/13/18 10:39 Motrin - PO 400 mg Q6H PRN Administration FEVER Melatonin 5 mg 09/06/18 03:00 09/11/18 22:24 Melatonin PO 5 mg HS PRN Administration INSOMNIA Methocarbamol 750 mg 09/10/18 15:18 09/13/18 10:40 Robaxin - PO 750 mg Q8H PRN Administration muscle pain Nicotine 21 mg 09/06/18 10:00 09/13/18 10:05 Nicoderm Patch - TD Not Given DAILY [facility] Nicotine Polacrilex 2 mg 09/06/18 17:26 Nicorette Gum - BUC Q2H PRN NICOTINE REPLACEMENT RX Promethazine HCl 25 mg 09/08/18 11:04 09/09/18 10:36 Phenergan Liquid - PO 25 mg Q6H PRN Administration NAUSEA AND/OR VOMITING Thiamine HCl 100 mg 09/06/18 22:00 09/12/18 21:10 Vitamin B1 - PO 100 mg HS MIHAELA Administration ASSESSMENT/PLAN: This is a 42 year old female with alcohol, opiod, tobacco dependance, sent from [facility], Influenza +, strep +; VRE in urine, possible contaminant. #Alcohol dependance withdrawl; -librium protocol finished #strep pharyngiits; on IV zosyn; if remains afebrile can switch to po tomorrow #infulenza A #VRE in urine; may be contaminent; monitor for fever; repeat ua; will adjust antibiotics accordingly #rbc in urine; will repeat ua; resolved dvt ppl lovenox Disposition: plan to dc tomorrow if remains afebrile Visit type - Emergency Visit Emergency Visit: Yes ED Registration Date: 09/05/18 Care time: The patient presented to the Emergency Department on the above date and was hospitalized for further evaluation of their emergent condition. - New Patient This patient is new to me today: No - Critical Care Critical Care patient: No
[2018-09-13] MEDS: MELATONIN 5 MG TABLETS PO PRN (21:54)
[2018-09-13] MEDS: THIAMINE HCL 100 MG TABLET (FP) PO SCH (21:54)
[2018-09-14] MEDS: chlordiazePOXIDE 5 MG CAPSULE PO PRN ×2 (00:13→06:51)
[2018-09-14] MEDS ORDERED: PIPERACILLIN/TAZOBACTAM 3.375 GM VIAL IVPB ONE (02:54)
[2018-09-14] MEDS ORDERED: DEXTROSE 5%-WATER - 50 ML IVPB ONE (02:54)
[2018-09-14] MEDS: PIPERACILLIN/TAZOB 3.375 GM 3.375 GM in DEXTROSE 5%-WATER - 50 ML IVPB SCH ×2 (03:27→10:53)
[2018-09-14] MEDS ORDERED: PT OWN MED DRAWER 7, Y5N ONE (06:50)
[2018-09-14 08:09] LABS: HEMATOCRIT 30.3 % (32.4-45.2); HEMOGLOBIN 10.2 GM/dL (10.7-15.3); MCH 31.2 pg (25.7-33.7); MCHC 33.7 g/dl (32.0-36.0); MEAN CELL VOLUME 92.8 fl (80-96); MEAN PLT VOLUME 7.9 fl (7.5-11.1); PLATELET COUNT 353 K/MM3 (134-434); RBC 3.27 M/mm3 (3.60-5.2); RDW 15.6 % (11.6-15.6); WHITE BLOOD COUNT 5.8 K/mm3 (4.0-10.0)
[2018-09-14 08:49] LABS: ANION GAP 6 MMOL/L (8-16); BLOOD UREA NITROGEN 14 mg/dL (7-18); CHLORIDE 110 mmol/L (98-107); CO2 24 mmol/L (21-32); CREATININE 0.6 mg/dL (0.55-1.3); GLUCOSE,RANDOM 72 mg/dL (74-106); MAGNESIUM 2.5 mg/dL (1.8-2.4); PHOSPHOROUS 5.2 mg/dL (2.5-4.9); POTASSIUM 4.3 mmol/L (3.5-5.1); SODIUM 140 mmol/L (136-145)
--- NOTE | 2018-09-14 10:45 | PN ---
Progress Note, Physician History of Present Illness: patient stable remaining afebrile - Current Medication List Current Medications: Active Medications Acetaminophen (Tylenol -) 650 mg PO Q4H PRN PRN Reason: FEVER Last Admin: 09/12/18 10:44 Dose: 650 mg Acetaminophen (Tylenol -) 650 mg PO Q4H PRN PRN Reason: PAIN SCALE 1-5 Enoxaparin Sodium (Lovenox -) 40 mg SQ DAILY MIHAELA Last Admin: 09/13/18 10:04 Dose: Not Given Piperacillin Sod/Tazobactam (Sod 3.375 gm/ Dextrose) 50 mls @ 100 mls/hr IVPB Q8H-IV MIHAELA; Protocol Last Admin: 09/14/18 03:27 Dose: 100 mls/hr Ibuprofen (Motrin -) 400 mg PO Q6H PRN PRN Reason: FEVER Last Admin: 09/13/18 10:39 Dose: 400 mg Melatonin (Melatonin) 5 mg PO HS PRN PRN Reason: INSOMNIA Last Admin: 09/13/18 21:54 Dose: 5 mg Methocarbamol (Robaxin -) 750 mg PO Q8H PRN PRN Reason: muscle pain Last Admin: 09/13/18 22:08 Dose: 750 mg Nicotine (Nicoderm Patch -) 21 mg TD DAILY MIHAELA Last Admin: 09/13/18 10:05 Dose: Not Given Nicotine Polacrilex (Nicorette Gum -) 2 mg BUC Q2H PRN PRN Reason: NICOTINE REPLACEMENT RX Promethazine HCl (Phenergan Liquid -) 25 mg PO Q6H PRN PRN Reason: NAUSEA AND/OR VOMITING Last Admin: 09/09/18 10:36 Dose: 25 mg Thiamine HCl (Vitamin B1 -) 100 mg PO HS MIHAELA Last Admin: 09/13/18 21:54 Dose: 100 mg - Objective Vital Signs: Vital Signs Temperature 98.6 F 09/14/18 06:09 Pulse Rate 74 09/14/18 06:09 Respiratory Rate 20 09/14/18 06:09 Blood Pressure 111/75 09/14/18 06:09 O2 Sat by Pulse Oximetry (%) 99 09/13/18 21:00 Constitutional: Yes: No Distress, Calm Cardiovascular: Yes: Regular Rate and Rhythm Respiratory: Yes: Regular, CTA Bilaterally Gastrointestinal: Yes: Normal Bowel Sounds, Soft Musculoskeletal: Yes: WNL Extremities: Yes: WNL Neurological: Yes: Alert, Oriented Psychiatric: Yes: Alert, Oriented Labs: CBC, BMP 09/14/18 07:00 09/14/18 07:00 Assessment/Plan Assessment/Plan (1) Influenza A Code(s): J10.1 - FLU DUE TO OTH IDENT INFLUENZA VIRUS W OTH RESP MANIFEST (2) Alcohol dependence with uncomplicated withdrawal Code(s): F10.230 - ALCOHOL DEPENDENCE WITH WITHDRAWAL, UNCOMPLICATED (3) Strep pharyngitis Code(s): J02.0 - STREPTOCOCCAL PHARYNGITIS (4) Opioid dependence with withdrawal Code(s): F11.23 - OPIOID DEPENDENCE WITH WITHDRAWAL (5) Nausea w/ vomiting 6 uti plan can change to oral augmentin continue it for 5 more days rest as per the team
[2018-09-14] MEDS: ENOXAPARIN NA (PORCINE) 40 MG/0.4 ML DISP.SYRIN SQ SCH (10:52)
[2018-09-14 10:53] VITALS: BP 146/70; PULSE 96; TEMP 98.4
[2018-09-14] MEDS: NICOTINE 21 MG/24 HOURS TOPICAL PATCH TD SCH (10:53)
--- NOTE | 2018-09-14 13:06 | PN ---
Teaching Attending Note Name of Resident: Stacia Enciso ATTENDING PHYSICIAN STATEMENT I saw and evaluated the patient. I reviewed the resident's note and discussed the case with the resident. I agree with the resident's findings and plan as documented with exceptions below. SUBJECTIVE: patient seen and examined, no complaints, eager to go home OBJECTIVE: Vital Signs Period Temp Pulse Resp BP Sys/Cobian Pulse Ox Last 24 Hr 98.3 F-99.2 F 74-96 17-20 98-146/54-75 99 Intake & Output 09/11/18 09/12/18 09/13/18 09/14/18 23:59 23:59 23:59 23:59 Intake Total 1075 810 50 Balance 1075 810 50 Weight 156 lb General: sitting in bed in no acute distress Chest: CTAB, no rales or wheezing Abdomen:Soft, NT Extremities: no edema Home Medications Medication Instructions Recorded Acetaminophen [Tylenol] 650 mg PO Q4H PRN 09/06/18 Calcium 250Mg/Vit-D 125 Units 1 combo PO BID 09/06/18 [Oscal 250 mg+D -] Cyclobenzaprine HCl [Flexeril -] 10 mg PO Q8H PRN 09/06/18 Guaifenesin [Robitussin -] 200 mg PO Q6H PRN 09/06/18 Ibuprofen [Motrin -] 400 mg PO Q6H PRN 09/06/18 Loperamide HCl [Imodium -] 4 mg PO Q6H PRN 09/06/18 Magnesium Hydrox 2400MG/30Ml [Milk 30 ml PO PRN PRN 09/06/18 of Magnesia -] Melatonin 5 mg PO HS PRN 09/06/18 Nicotine Patch [Nicoderm Patch -] 1 patch TD DAILY 09/06/18 Nicotine Polacrilex [Nicorette] 2 mg BC Q2H PRN 09/06/18 Pnv No.95/Ferrous Fum/Folic AC 1 each PO DAILY 09/06/18 [ Vitamin Tablet] Thiamine Mononitrate [Vitamin B-1] 100 mg PO HS 09/06/18 cloNIDine HCL [Catapres -] 0.1 mg PO BID 09/06/18 hydrOXYzine PAMOATE [Vistaril -] 25 mg PO Q4H PRN 09/06/18 Amoxicillin/Potassium Clav 1 each PO BID 5 Days #10 tablet 09/14/18 [Augmentin 875-125 Tablet] Laboratory Results - last 24 hr 09/14/18 09/14/18 07:00 07:00 WBC 5.8 RBC 3.27 L Hgb 10.2 L Hct 30.3 L MCV 92.8 MCH 31.2 MCHC 33.7 RDW 15.6 Plt Count 353 MPV 7.9 Sodium 140 Potassium 4.3 Chloride 110 H Carbon Dioxide 24 Anion Gap 6 L BUN 14 Creatinine 0.6 Creat Clearance w eGFR > 60 Random Glucose 72 L Calcium 9.0 Phosphorus 5.2 H Magnesium 2.5 H ASSESSMENT AND PLAN: 42 yof with PMHx of polysubstance abuse (heroin, cocaine, tobacco, alcohol) from [facility] with acute influenza illness and strep pharyngitis -Acute influenza illness -Streptococcal pharyngitis -Polysubstance abuse with heroine/cocaine/tobacco/alcohol Plan: s/p librium detox. No concerns for withdrawal Afebrile, Discussed with ID, augmentin for 5 days. D/c home with outpatient PCP follow up. Discussed with patient and all questions answered.
--- NOTE | 2018-09-14 15:03 | DS ---
Physical Exam: SUBJECTIVE: Patient seen and examined OBJECTIVE: Vital Signs Period Temp Pulse Resp BP Sys/Cobian Pulse Ox Last 24 Hr 98.4 F-99.2 F 74-96 17-20 98-146/54-75 99 PHYSICAL EXAM GENERAL: The patient is awake, alert, and fully oriented, in no acute distress. HEAD: Normal with no signs of trauma. EYES: PERRL, extraocular movements intact, sclera anicteric, conjunctiva clear. ENT: Ears normal, nares patent, oropharynx clear without exudates, moist mucous membranes. NECK: Trachea midline, full range of motion, supple. LUNGS: Breath sounds equal, clear to auscultation bilaterally, no wheezes, no crackles, no accessory muscle use. HEART: Regular rate and rhythm, S1, S2 without murmur, rub or gallop. ABDOMEN: Soft, nontender, nondistended, normoactive bowel sounds, no guarding, no rebound, no hepatosplenomegaly, no masses. EXTREMITIES: 2+ pulses, warm, well-perfused, no edema. NEUROLOGICAL: Cranial nerves II through XII grossly intact. Normal speech, gait not observed. PSYCH: Normal mood, normal affect. SKIN: Warm, dry, normal turgor, no rashes or lesions noted. LABS Laboratory Results - last 24 hr 09/14/18 09/14/18 07:00 07:00 WBC 5.8 RBC 3.27 L Hgb 10.2 L Hct 30.3 L MCV 92.8 MCH 31.2 MCHC 33.7 RDW 15.6 Plt Count 353 MPV 7.9 Sodium 140 Potassium 4.3 Chloride 110 H Carbon Dioxide 24 Anion Gap 6 L BUN 14 Creatinine 0.6 Creat Clearance w eGFR > 60 Random Glucose 72 L Calcium 9.0 Phosphorus 5.2 H Magnesium 2.5 H HOSPITAL COURSE: Date of Admission:09/05/18 Date of Discharge: 09/14/18 This is a 42 year old female with alcohol, opiod, tobacco dependance, sent from [facility], Influenza +, strep +; VRE in urine, although possible contaminant. She was treated with in hospital with IV zosyn and sent home on augmentin for another 5 days. Tamiflu was also given. She completed her inpatient detox for alcohol and opiod withdrawal while in hospital. Plan to follow up with primary care. Minutes to complete discharge: 40 Discharge Summary Reason For Visit: ALCOHOL DEPENDENCE WITH UNCOMPLICATED WITHDRAWL Condition: Fair - Instructions Diet, Activity, Other Instructions: You were seen in the ER today for fever. The results of your labs today showed Flu A and strep throat. We have sent an antibiotic (Augmentin) to your pharmacy. Please take these as prescribed. You have finished your detox course. Please follow up with your doctor. If interested in the future, please discuss outpatient drug rehab options with your doctor. Please follow-up with your primary care doctor within 1-2 days to discuss your visit and make sure your symptoms have improved. Please return to the ER if you have any worsening pain, development of fevers or chills, loss of consciousness , inability to tolerate food or fluids, or any other concerns. Referrals: [facility] [place] [facility] [place] [Provider Group] Disposition: HOME - Home Medications Comprehensive Discharge Medication List: Ambulatory Orders Acetaminophen [Tylenol] 650 mg PO Q4H PRN 09/06/18 Calcium 250Mg/Vit-D 125 Units [Oscal 250 mg+D -] 1 combo PO BID 09/06/18 Cyclobenzaprine HCl [Flexeril -] 10 mg PO Q8H PRN 09/06/18 Guaifenesin [Robitussin -] 200 mg PO Q6H PRN 09/06/18 Ibuprofen [Motrin -] 400 mg PO Q6H PRN 09/06/18 Loperamide HCl [Imodium -] 4 mg PO Q6H PRN 09/06/18 Magnesium Hydrox 2400MG/30Ml [Milk of Magnesia -] 30 ml PO PRN PRN 09/06/18 Melatonin 5 mg PO HS PRN 09/06/18 Nicotine Patch [Nicoderm Patch -] 1 patch TD DAILY 09/06/18 Nicotine Polacrilex [Nicorette] 2 mg BC Q2H PRN 09/06/18 Pnv No.95/Ferrous Fum/Folic AC [ Vitamin Tablet] 1 each PO DAILY Thiamine Mononitrate [Vitamin B-1] 100 mg PO HS 09/06/18 cloNIDine HCL [Catapres -] 0.1 mg PO BID 09/06/18 hydrOXYzine PAMOATE [Vistaril -] 25 mg PO Q4H PRN 09/06/18 Amoxicillin/Potassium Clav [Augmentin 875-125 Tablet] 1 each PO BID 5 Days #10 tablet 09/14/18 This patient is new to me today: No Emergency Visit: Yes ED Registration Date: 09/05/18 Care time: The patient presented to the Emergency Department on the above date and was hospitalized for further evaluation of their emergent condition. Critical Care patient: No - Discharge Referral Referred to [facility] No
== END 2018-09-14 12:32 | disposition home or self-care (01) | DRG 113 ==
LOC: JER 20:30 → JERBED 23:00 → J6S 09-06 11:51
PROVIDERS: ADMIT Internal Medicine; ATTEND Hospitalist
PROC: HZ2ZZZZ Detoxification Services for Substance Abuse Treatment (ICD-10-PCS; principal; 2018-09-05)
PROC: HZ90ZZZ Pharmacotherapy for Substance Abuse Treatment, Nicotine Replacement (ICD-10-PCS; 2018-09-05)
PROC: HZ91ZZZ Pharmacotherapy for Substance Abuse Treatment, Methadone Maintenance (ICD-10-PCS; 2018-09-10)
DX: J09.X2 Influenza due to identified novel influenza A virus with other respiratory manifestations (principal); F10.230 Alcohol dependence with withdrawal, uncomplicated; N39.0 Urinary tract infection, site not specified; F17.210 Nicotine dependence, cigarettes, uncomplicated; F14.10 Cocaine abuse, uncomplicated; K59.00 Constipation, unspecified; T37.5X5A Adverse effect of antiviral drugs, initial encounter; R11.2 Nausea with vomiting, unspecified; Y92.230 Patient room in hospital as the place of occurrence of the external cause; F41.9 Anxiety disorder, unspecified; F11.20 Opioid dependence, uncomplicated
CPT/HCPCS: 36415; 71045-TC-FY; 71046-TC-FY; 74177-TC; 80048; 80053; 80061; 80076; 81003; 81015; 83690; 83721; 83735; 84100; 84702; 84703; 85025; 85027; 87040; 87086; 87186; 87324; 87449; 87804; 87880; 93005; 93010; 99283-25; J0735; J7030; Q9967

== ENCOUNTER 2024-09-27 16:20 | Inpatient (IN) | payer OTHER ==
[2024-09-27 17:34] VITALS: BMI 27.0
[2024-09-27] MEDS ORDERED: IBUPROFEN 400 MG TABLET (FP) PO PRN (17:47)
[2024-09-27] MEDS ORDERED: ONDANSETRON *ODT* 4 MG TABLET SL PRN (17:47)
[2024-09-27] MEDS ORDERED: ACETAMINOPHEN 325 MG TABLET (FP) PO PRN (17:47)
[2024-09-27] MEDS ORDERED: MAG HYDROX/AL HYDROX/SIMETH 30 ML UNIT-DOSE CUP PO PRN (17:47)
[2024-09-27] MEDS ORDERED: BENZOCAINE/MENTHOL (CHLORASEPTIC ) LOZENGE MM PRN (17:47)
[2024-09-27] MEDS ORDERED: BENZONATATE 200 MG CAPSULE PO PRN (17:47)
[2024-09-27] MEDS ORDERED: POLYETHYLENE GLYCOL (HEALTHYLAX) 3350 17 GM PACKET PO PRN (17:47)
[2024-09-27] MEDS ORDERED: BISMUTH SUBSALICYLATE 524 MG/30 ML PO PRN (17:47)
[2024-09-27] MEDS ORDERED: NALOXONE (NARCAN) HCL 4 MG/0.1 ML SPRAY NS PRN (17:47)
[2024-09-27] MEDS ORDERED: LOPERAMIDE HCL 2 MG CAPSULE PO PRN (17:47)
[2024-09-27] MEDS ORDERED: guaiFENesin 600 MG TABLET.ER (FP) PO PRN (17:47)
[2024-09-27] MEDS ORDERED: DICYCLOMINE HCL 10 MG CAPSULE PO PRN (17:47)
[2024-09-27] MEDS ORDERED: ALBUTEROL SO4 HFA INHALER IH PRN (18:08)
[2024-09-27] MEDS ORDERED: methaDONE HCL 10 MG TABLET (FOR DETOX USE ONLY) ONE (18:34)
[2024-09-27] MEDS: methaDONE HCL 10 MG TABLET PO ONE (18:38)
[2024-09-27] MEDS: cloNIDine HCL 0.1 MG TABLET PO SCH (18:39)
[2024-09-27] MEDS: MAGNESIUM HYDROX 2400MG/30ML ORAL SUSPENSION 30 ML CUP PO PRN (19:21)
[2024-09-27] MEDS ORDERED: methaDONE HCL 10 MG TABLET PO PRN (19:47)
[2024-09-27] MEDS: METHOCARBAMOL 500 MG TABLET PO PRN (22:13)
[2024-09-27] MEDS: THIAMINE 100 MG TABLET PO SCH (22:13)
[2024-09-27] MEDS: MELATONIN 5 MG TABLETS PO SCH (22:13)
[2024-09-27] MEDS: hydrOXYzine PAMOATE 25 MG CAPSULE (FP) PO PRN (22:14)
[2024-09-28] MEDS: PRENATAL VITAMINS W/ FOLIC ACID TABLET (FP) PO SCH (09:57)
[2024-09-28] MEDS ORDERED: methaDONE HCL 40 MG DISPERSABLE TABLET PO ONE ×2 (10:00)
[2024-09-28 15:42] LABS: HEMATOCRIT 35.1 % (34.1-44.9); HEMOGLOBIN 10.7 g/dL (11.2-15.7); MCHC 30.5 g/dl (32.2-35.5); MEAN CELL VOLUME 95.1 fl (79.4-94.8); MEAN PLT VOLUME 11.5 fl (9.4-12.3); PLATELET COUNT 198 x10^3/uL (182-369); RDW 18.6 % (12.2-17.1)
[2024-09-28 15:47] LABS: CHLORIDE 109 mmol/L (98-107); SODIUM 141 mmol/L (136-145)
[2024-09-28 15:55] LABS: ALBUMIN 3.2 g/dl (3.4-5.0); ANION GAP 5 mmol/L (4-13); BLOOD UREA NITROGEN 15.2 mg/dL (7-18); CALCIUM 8.8 mg/dL (8.5-10.1); CO2 27 mmol/L (21-32); GLUCOSE,RANDOM 91 mg/dL (74-106); SGOT/AST 13 U/L (15-37); SGPT/ALT 14 U/L (13-61)
[2024-09-28 15:57] LABS: BILIRUBIN,TOTAL 0.1 mg/dL (0.2-1); TOT PROT 6.1 g/dl (6.4-8.2)
[2024-09-28 15:58] LABS: ALK PHOS 70 U/L (45-117)
[2024-09-28 15:59] LABS: CREATININE 0.8 mg/dL (0.55-1.3)
[2024-09-28] MEDS: diazePAM 5 MG TABLET PO PRN (22:21)
[2024-09-29] MEDS: methaDONE HCL 40 MG DISPERSABLE TABLET PO ONE (09:08)
[2024-09-29] MEDS ORDERED: methaDONE HCL 40 MG DISPERSABLE TABLET PO ONE (10:00)
[2024-09-29] MEDS: cloNIDine HCL 0.1 MG TABLET PO PRN (22:21)
[2024-09-29] MEDS: IBUPROFEN 600 MG TABLET (FP) PO PRN (22:24)
[2024-09-30] MEDS: methaDONE HCL 40 MG DISPERSABLE TABLET PO ONE (09:44)
[2024-09-30] MEDS ORDERED: methaDONE HCL 40 MG DISPERSABLE TABLET PO ONE (10:00)
[2024-10-01] MEDS: methaDONE 40 MG, methaDONE 10 MG PO SCH (05:36)
[2024-10-01] MEDS ORDERED: methaDONE HCL 40 MG DISPERSABLE TABLET PO ONE ×2 (10:00)
[2024-10-01] MEDS: diazePAM 5 MG TABLET PO PRN (12:33)
[2024-10-02] MEDS ORDERED: methaDONE HCL 40 MG DISPERSABLE TABLET PO ONE ×2 (10:00)
[2024-10-02 21:36] VITALS: BP 107/73; PULSE 82; RESP 18; TEMP 97.5
== END 2024-10-03 06:11 | disposition other institution (70) | DRG 773 ==
LOC: YASAS 16:20 → Y6N 18:22
PROVIDERS: ADMIT Allergy & Immunology; ATTEND Allergy & Immunology
PROC: HZ2ZZZZ Detoxification Services for Substance Abuse Treatment (ICD-10-PCS; principal; 2024-09-27)
DX: F11.23 Opioid dependence with withdrawal (principal); F14.20 Cocaine dependence, uncomplicated; F17.210 Nicotine dependence, cigarettes, uncomplicated; F41.9 Anxiety disorder, unspecified; F32.A Depression, unspecified; J45.909 Unspecified asthma, uncomplicated
CPT/HCPCS: 36415; 80053; 80305; 80307; 81025; 85027; 86780; 93005; 93010